=== PATIENT | male | born 1945 | race Hispanic/Latino ===

== ENCOUNTER 2016-09-09 15:49 | Emergency (ER) | payer MEDICARE ==
[2016-09-09 15:49] VITALS: BMI 38.5
[2016-09-09 16:20] VITALS: TEMP 98.3
[2016-09-09 16:35] LABS: ADD MANUAL DIFF? NO
--- NOTE | 2016-09-09 16:41 | ED PDOC ---
Arrival/HPI - General Chief Complaint: Fever Time Seen by Provider: 09/09/16 16:10 Historian: Patient - History of Present Illness Narrative History of Present Illness (Text): 09/09/16 16:31 71yo male with PMHx of CVA present with the daughter for few days history of fever, generalized weakness. The daughter states he slid off from his chair twice because he was weak. States he spoke with the PMD today and was referred to the ED. Pt denies any somatic complaint in ED. Denies chest pain, SOB, diaphoresis, nausea, vomiting, abdominal pain, sick contact, any other complaint. Past Medical History - Provider Review Nursing Documentation Reviewed: Yes - Infectious Disease Hx of Infectious Diseases: None - Tetanus Immunization Tetanus Immunization: Unknown - Cardiac Hx Hypertension: Yes Hx Peripheral Edema: Yes (ble +2 pitting) - Pulmonary Hx Sleep Apnea: Yes - Neurological Hx Neurological Disorder: Yes Hx Parkinson's Disease: Yes - HEENT Hx HEENT Disorder: Yes - Renal Hx Renal Disorder: No Hx Dialysis: No Hx Kidney Stones: No Hx Neurogenic Bladder: No Hx Pyelonephritis: No Hx Renal Cancer: No Hx Renal Failure: No - Endocrine/Metabolic Hx Diabetes Mellitus Type 2: Yes - Hematological/Oncological Hx Blood Disorders: No Hx AIDS: No Hx Anemia: No Hx Cancer: No Hx Chemotherapy: No Hx Cirrhosis: No Hx Hepatitis A: No Hx Hepatitis B: No Hx Hepatitis C: No Hx Metastasis: No Hx Shingles: No Hx Sickle Cell Disease: No Hx Unexplained Bleeding: No - Integumentary Hx Dermatological Disorder: Yes - Musculoskeletal/Rheumatological Hx Musculoskeletal Disorders: No Hx Arthritis: Yes (L side rheumatoid) Hx Falls: Yes (witnessed fall , no LOC) Hx Fractures: Yes (L shoulder) - Gastrointestinal Other/Comment: hx of hiatal hernia - Genitourinary/Gynecological Hx Genitourinary Disorders: No Hx Hematuria: No Hx Incontinence: No Hx Prostate Problems: No Hx Sexually Transmitted Diseases: No Hx Urinary Tract Infection: No - Psychiatric Hx Psychophysiologic Disorder: No Hx Anxiety: Yes Hx Bipolar Disorder: No Hx Depression: Yes Hx Emotional Abuse: No Hx Hallucinations: No Hx Panic Disorder: No Hx Post Traumatic Stress Disorder: No Hx Psychosis: No Hx Physical Abuse: No Hx Schizophrenia: No Hx Sexual Abuse: No Hx Substance Use: No - Past Surgical History Past Surgical History: Non-Contributing - Surgical History Hx Amputation: No Hx Appendectomy: No Hx Cardiac Catheterization: Yes Hx Cholecystectomy: No Hx Coronary Stent: No Hx Gastric Bypass Surgery: No Hx Joint Replacement: No Hx Kidney Transplant: No Hx Liver Transplant: No Hx Musculoskeletal Surgery: Yes Hx Open Heart Surgery: No Hx Orthopedic Surgery: Yes (left shoulder) Hx Splenectomy: No Hx Valve Replacement: No - Anesthesia Hx Anesthesia: Yes Hx Anesthesia Reactions: No Hx Malignant Hyperthermia: No - Suicidal Assessment Feels Threatened In Home Enviroment: No Family/Social History - Physician Review Nursing Documentation Reviewed: Yes Family/Social History: Unknown Family HX Smoking Status: Former Smoker Hx Alcohol Use: No Hx Substance Use: No Hx Substance Use Treatment: No Allergies/Home Meds Allergies/Adverse Reactions: Allergies No Known Allergies Allergy (Verified 09/09/16 16:08) Home Medications: Home Meds Medication Instructions Recorded Confirmed Pramipexole Di-HCl [Mirapex ER] 3 mg PO DAILY 07/17/12 09/09/16 Atorvastatin Calcium [Lipitor] 10 mg PO DAILY 08/03/12 09/09/16 Warfarin [Coumadin] 2.5 mg PO MOTUTHFRSA 11/24/13 09/09/16 Albuterol HFA [Ventolin HFA 90 2 puff IH [id number] PRN 08/14/15 09/09/16 mcg/actuation (8 g)] Carbidopa/Levodopa [Sinemet 10-100 1 each PO DAILY 08/14/15 09/09/16 mg Tablet] Folic Acid 1 mg PO DAILY 08/14/15 09/09/16 Furosemide [Lasix] 40 mg PO DAILY 08/14/15 09/09/16 Lisinopril [Zestril] 10 mg PO DAILY 08/14/15 09/09/16 Metolazone 2.5 mg PO DAILY PRN 08/14/15 09/09/16 metFORMIN [glucOPHAGE] 500 mg PO DAILY 08/14/15 09/09/16 Review of Systems - Physician Review All systems were reviewed & negative as marked: Yes - Review of Systems Constitutional: Fatigue, Fevers Eyes: Normal ENT: Normal Respiratory: Normal Cardiovascular: Normal Gastrointestinal: Normal Genitourinary Male: Normal Musculoskeletal: Normal Skin: Normal Neurological: Normal Endocrine: Normal Hemo/Lymphatic: Normal Psychiatric: Normal Physical Exam Vital Signs Reviewed: Yes Vital Signs Temp Pulse Resp BP Pulse Ox 09/09/16 18:15 65 18 137/72 98 09/09/16 16:02 98.3 F 61 20 114/66 94 L Temperature: Afebrile Blood Pressure: Normal Pulse: Regular Respiratory Rate: Normal Appearance: Positive for: Well-Appearing, Non-Toxic, Comfortable Pain Distress: None Mental Status: Positive for: Alert and Oriented X 3 - Systems Exam Head: Present: Atraumatic, Normocephalic Pupils: Present: PERRL Extroacular Muscles: Present: EOMI Conjunctiva: Present: Normal Mouth: Present: Moist Mucous Membranes Neck: Present: Normal Range of Motion Respiratory/Chest: Present: Clear to Auscultation, Good Air Exchange. No: Respiratory Distress, Accessory Muscle Use Cardiovascular: Present: Regular Rate and Rhythm, Normal S1, S2. No: Murmurs Abdomen: Present: Normal Bowel Sounds. No: Tenderness, Distention, Peritoneal Signs Back: Present: Normal Inspection Upper Extremity: Present: Normal Inspection. No: Cyanosis, Edema Lower Extremity: Present: Normal Inspection. No: Edema Neurological: Present: GCS=15, CN II-XII Intact, Speech Normal Skin: Present: Warm, Dry, Normal Color. No: Rashes Psychiatric: Present: Alert, Oriented x 3, Normal Insight, Normal Concentration Medical Decision Making ED Course and Treatment: 09/09/16 23:47 PT was seen in ED for stated history. He as afebrile, AAO x3 and hemodynamically stable in ED. His lab was unremarkable. He was ambulatory with a walker in ED. Chest xray - NAD Case was DW Dr. Bains, he requested that patient be DC home to f/u with him on Sunday. Result and plan was DW both patient and her daughter. They both agreed. - Lab Interpretations Lab Results: 09/09/16 16:15 09/09/16 16:15 Lab Results 09/09/16 18:45: Urine Color Yellow, Urine Appearance Clear, Urine pH 6.0, Ur Specific [place] 1.020, Urine Protein Trace H, Urine Glucose (UA) Negative, Urine Ketones Negative, Urine Blood Negative, Urine Nitrate Negative, Urine Bilirubin Negative, Urine Urobilinogen 2.0 H, Ur Leukocyte Esterase Negative, Urine RBC Negative, Urine WBC Negative 09/09/16 16:15: Sodium 142, Chloride 99, Potassium 3.6, Carbon Dioxide 32, Anion Gap 15, BUN 31 H, Creatinine 0.9, Est GFR ( Amer) > 60, Est GFR ( Non-Af Amer) > 60, Random Glucose 116 H, Calcium 9.0, Phosphorus 3.5, Magnesium 2.2, Total Bilirubin 0.9, AST 47, ALT 32, Alkaline Phosphatase 84, Troponin I 0.04 D, Total Protein 8.4 H, Albumin 4.1, Globulin 4.3, Albumin/Globulin Ratio 1.0 L 09/09/16 16:15: pO2 39, VBG pH 7.36, VBG pCO2 62.0 H, VBG HCO3 35.0 H, VBG Total CO2 36.9 H, VBG O2 Sat (Calc) 76.0 H, VBG Base Excess 7.4 H, VBG Potassium 3.6, Sodium 141.0, Chloride 105.0, Glucose 123 H, Lactate 1.5, FiO2 21.0, Venous Blood Potassium 3.6 09/09/16 16:15: PT 20.7 H, INR 1.92 H, APTT 38.3 H 09/09/16 16:15: WBC 5.3, RBC 4.24, Hgb 11.0 L, Hct 35.3 L, MCV 83.3, MCH 25.9, MCHC 31.2, RDW 17.2 H, Plt Count 119 L, Gran % 67.8, Lymph % (Auto) 19.4 L, [place] % (Auto) 9.7 H, Eos % (Auto) 2.7, Baso % (Auto) 0.4, Gran # 3.57, Lymph # 1.0 L, [place] # 0.5, Eos # 0.1, Baso # 0.02 - RAD Interpretation Radiology Orders: 09/09/16 16:10 CHEST PORTABLE [RAD] Stat Disposition/Present on Arrival - Present on Arrival Any Indicators Present on Arrival: No History of DVT/PE: No History of Uncontrolled Diabetes: No Urinary Catheter: No History of Decub. Ulcer: No History Surgical Site Infection Following: Orthopedic Procedures - Disposition Have Diagnosis and Disposition been Completed?: Yes Diagnosis: Malaise Disposition: HOME/ ROUTINE Disposition Time: 19:55 Patient Plan: Discharge Condition: STABLE Discharge Instructions (ExitCare): Fatigue (ED) Additional Instructions: Follow up with your doctor on Sunday Return to ED for any new or worsening symptoms Referrals: Junior Brock MD [Family Provider] - Follow up with primary
[2016-09-09 16:42] LABS: VENOUS BLOOD GAS BASE EXCESS 7.4 mmol/L (0.0-2.0); VENOUS BLOOD PH 7.36 (7.32-7.43)
[2016-09-09 16:49] LABS: BASO # 0.02 K/mm3 (0.0-2.0); BASO % 0.4 % (0.0-3.0); EOS # 0.1 (0.0-0.7); EOS % 2.7 % (1.5-5.0); GRAN # 3.57 (1.4-6.5); GRAN % 67.8 % (50.0-68.0); HEMATOCRIT 35.3 % (42.0-52.0); LYMPH % 19.4 % (22.0-35.0); MEAN CELL VOLUME 83.3 fL (80.0-105.0); MEAN CORPUSCULAR HEMOGLOBIN 25.9 pg (25.0-35.0); MEAN CORPUSCULAR HGB CONC 31.2 g/dl (31.0-37.0); MONO # 0.5 (0.1-0.6); MONO % 9.7 % (1.0-6.0); PLATELET COUNT 119 10^3/uL (120.0-450.0); RED CELL DISTRIBUTION WIDTH 17.2 % (11.5-14.5); WHITE BLOOD COUNT 5.3 10^3/ul (4.5-11.0)
[2016-09-09 16:53] LABS: ALKALINE PHOSPHATASE 84 U/L (38-133); ALT/SGPT 32 U/L (7-56); AST/SGOT 47 U/L (15-59); BILIRUBIN,TOTAL 0.9 mg/dL (0.2-1.3); BLOOD UREA NITROGEN 31 mg/dL (7-21); CARBON DIOXIDE 32 mmol/L (21-33); CHLORIDE 99 mmol/L (98-107); GFR AFRICAN-AMERICAN > 60; GLUCOSE,RANDOM 116 mg/dL (70-110); MAGNESIUM 2.2 mg/dL (1.7-2.2); PHOSPHOROUS 3.5 mg/dL (2.5-4.5); POTASSIUM 3.6 mmol/L (3.6-5.0); SODIUM 142 mmol/L (132-148); TOTAL PROTEIN 8.4 g/dL (5.8-8.3)
[2016-09-09 16:59] LABS: INR 1.92 (0.93-1.08); PARTIAL THROMBOPLASTIN TIME 38.3 Seconds (23.7-30.8)
[2016-09-09 17:04] LABS: TROPONIN I 0.04 ng/mL
[2016-09-09 19:05] VITALS: BP 137/72; PULSE 65; RESP 18; O2SAT 98
[2016-09-09 19:09] LABS: URINE BILIRUBIN NEGATIVE (NEGATIVE); URINE BLOOD NEGATIVE (NEGATIVE); URINE GLUCOSE (UA) NEGATIVE (NEGATIVE); URINE KETONE NEGATIVE (NEGATIVE); URINE LEUKOCYTE ESTERASE NEGATIVE Leu/uL (NEGATIVE); URINE PROTEIN TRACE mg/dL (<30 mg/dL)
[2016-09-09 19:10] LABS: URINE APPEARANCE CLEAR (CLEAR); URINE COLOR YELLOW (YELLOW)
[2016-09-09 19:16] LABS: URINE RBC NEGATIVE /hpf (0-2); URINE WBC NEGATIVE /hpf (0-6)
--- NOTE | 2016-09-10 06:58 | RAD ---
HISTORY: Sepsis Patient COMPARISON: No prior. FINDINGS: LUNGS: No active pulmonary disease. PLEURA: No significant pleural effusion identified, no pneumothorax apparent. CARDIOVASCULAR: Normal. OSSEOUS STRUCTURES: No significant abnormalities. VISUALIZED UPPER ABDOMEN: Normal. OTHER FINDINGS: None. IMPRESSION: No active disease.
--- NOTE | 2016-09-10 14:58 | CARD ---
APPROVED REPORT EKG Measurement Heart [id number] <Conclusion> Electronic ventricular pacemaker
== END 2016-09-09 20:31 | disposition home or self-care (01) ==
LOC: ED 15:49
DX: R53.81 Other malaise (principal); I10 Essential (primary) hypertension; R60.9 Edema, unspecified; G20 Parkinson's disease; E11.9 Type 2 diabetes mellitus without complications; Z87.891 Personal history of nicotine dependence

== ENCOUNTER 2017-11-26 15:47 | Inpatient (IN) | payer MEDICARE ==
[2017-11-26] MEDS ORDERED: cefTRIAXone 1 gm 1 GM/100 ML BAG IVPB STA (16:35)
--- NOTE | 2017-11-26 16:41 | ED PDOC ---
Arrival/HPI - General Chief Complaint: Trauma Time Seen by Provider: 11/26/17 16:13 Historian: Family (daughter) - History of Present Illness Narrative History of Present Illness (Text): 11/26/17 16:39 This 72 year old male with a past medical history that includes atrial fibrillation, Parkinson's, diabetes, hypertension, pacemaker, COPD, and CVA presents to the emergency department with daughter for evaluation of left flank pain, and back pain x 3 days. Daughter stated patient has been fallen multiple time last 3 days, and patient appears more disoriented. Daughter stated patient was seen by Dr. Brock, and daughter recommended to bring patient to ED for admission. Time/Duration: Other (see hpi) Context: Home Past Medical History - Provider Review Nursing Documentation Reviewed: Yes - Infectious Disease Hx of Infectious Diseases: None - Tetanus Immunization Tetanus Immunization: Unknown - Cardiac Hx Hypertension: Yes Hx Peripheral Edema: Yes (ble +2 pitting) - Pulmonary Hx Sleep Apnea: Yes - Neurological Hx Neurological Disorder: Yes Hx Parkinson's Disease: Yes - HEENT Hx HEENT Disorder: Yes - Renal Hx Renal Disorder: No Hx Dialysis: No Hx Kidney Stones: No Hx Neurogenic Bladder: No Hx Pyelonephritis: No Hx Renal Cancer: No Hx Renal Failure: No - Endocrine/Metabolic Hx Diabetes Mellitus Type 2: Yes - Hematological/Oncological Hx Blood Disorders: No Hx AIDS: No Hx Anemia: No Hx Cancer: No Hx Chemotherapy: No Hx Cirrhosis: No Hx Hepatitis A: No Hx Hepatitis B: No Hx Hepatitis C: No Hx Metastasis: No Hx Shingles: No Hx Sickle Cell Disease: No Hx Unexplained Bleeding: No - Integumentary Hx Dermatological Disorder: Yes - Musculoskeletal/Rheumatological Hx Musculoskeletal Disorders: No Hx Arthritis: Yes (L side rheumatoid) Hx Falls: Yes (witnessed fall , no LOC) Hx Fractures: Yes (L shoulder) - Gastrointestinal Other/Comment: hx of hiatal hernia - Genitourinary/Gynecological Hx Genitourinary Disorders: No Hx Hematuria: No Hx Incontinence: No Hx Prostate Problems: No Hx Sexually Transmitted Diseases: No Hx Urinary Tract Infection: No - Psychiatric Hx Psychophysiologic Disorder: No Hx Anxiety: Yes Hx Bipolar Disorder: No Hx Depression: Yes Hx Emotional Abuse: No Hx Hallucinations: No Hx Panic Disorder: No Hx Post Traumatic Stress Disorder: No Hx Psychosis: No Hx Physical Abuse: No Hx Schizophrenia: No Hx Sexual Abuse: No Hx Substance Use: No - Past Surgical History Past Surgical History: Non-Contributing - Surgical History Hx Amputation: No Hx Appendectomy: No Hx Cardiac Catheterization: Yes Hx Cholecystectomy: No Hx Coronary Stent: No Hx Gastric Bypass Surgery: No Hx Joint Replacement: No Hx Kidney Transplant: No Hx Liver Transplant: No Hx Musculoskeletal Surgery: Yes Hx Open Heart Surgery: No Hx Orthopedic Surgery: Yes (left shoulder) Hx Splenectomy: No Hx Valve Replacement: No - Anesthesia Hx Anesthesia: Yes Hx Anesthesia Reactions: No Hx Malignant Hyperthermia: No - Suicidal Assessment Feels Threatened In Home Enviroment: No Family/Social History - Physician Review Nursing Documentation Reviewed: Yes Family/Social History: Other (noncontributory) Smoking Status: Former Smoker Hx Alcohol Use: No Hx Substance Use: No Hx Substance Use Treatment: No Allergies/Home Meds Allergies/Adverse Reactions: Allergies No Known Allergies Allergy (Verified 09/09/16 16:08) Home Medications: Home Meds Medication Instructions Recorded Confirmed Pramipexole Di-HCl [Mirapex ER] 3 mg PO DAILY 07/17/12 09/09/16 Atorvastatin Calcium [Lipitor] 10 mg PO DAILY 08/03/12 09/09/16 Warfarin [Coumadin] 2.5 mg PO MOTUTHFRSA 11/24/13 09/09/16 Albuterol HFA [Ventolin HFA 90 2 puff IH [id number] PRN 08/14/15 09/09/16 mcg/actuation (8 g)] Carbidopa/Levodopa [Sinemet 10-100 1 each PO DAILY 08/14/15 09/09/16 mg Tablet] Folic Acid 1 mg PO DAILY 08/14/15 09/09/16 Furosemide [Lasix] 40 mg PO DAILY 08/14/15 09/09/16 Lisinopril [Zestril] 10 mg PO DAILY 08/14/15 09/09/16 Metolazone 2.5 mg PO DAILY PRN 08/14/15 09/09/16 metFORMIN [glucOPHAGE] 500 mg PO DAILY 08/14/15 09/09/16 Review of Systems - Review of Systems Systems not reviewed;Unavailable: Other (information given by patient's daughter ) Constitutional: Normal. absent: Fevers Eyes: Normal ENT: Normal Respiratory: Cough. absent: Sputum, Wheezing Cardiovascular: Normal. absent: Chest Pain, Palpitations Gastrointestinal: Abdominal Pain. absent: Nausea, Vomiting Genitourinary Male: Normal. absent: Dysuria, Frequency, Hematuria Musculoskeletal: Back Pain Skin: Normal. absent: Rash Neurological: Other (multiple fall). absent: Headache, Dizziness, Focal Weakness, Gait Changes, Speech Changes, Facial Droop, Disequilibrium, Seizure Endocrine: Normal Hemo/Lymphatic: Normal Psychiatric: Normal Physical Exam Vital Signs Temp Pulse Resp BP Pulse Ox 11/26/17 16:26 99.6 F 60 18 128/77 94 L Temperature: Afebrile Blood Pressure: Normal Pulse: Regular Respiratory Rate: Normal Appearance: Positive for: Well-Appearing, Non-Toxic, Comfortable Pain Distress: None - Systems Exam Head: Present: Atraumatic, Normocephalic Pupils: Present: PERRL Extroacular Muscles: Present: EOMI Conjunctiva: Present: Normal Mouth: Present: Moist Mucous Membranes Neck: Present: Normal Range of Motion Respiratory/Chest: Present: Clear to Auscultation, Good Air Exchange. No: Respiratory Distress, Accessory Muscle Use Cardiovascular: Present: Regular Rate and Rhythm, Normal S1, S2. No: Murmurs Abdomen: Present: Normal Bowel Sounds. No: Tenderness, Distention, Peritoneal Signs, Rebound, Guarding Back: Present: Normal Inspection Upper Extremity: Present: NORMAL PULSES, Neurovascularly Intact, Capillary Refill < 2s, Other ((+) left shoulder chronic tenderness. No cellulitis). No: Cyanosis, Edema, Erythema, Temperature Abnormalties Lower Extremity: Present: Edema ((+) mild pedal edema b/l lower leg), NORMAL PULSES. No: CALF TENDERNESS, Temperature Abnormalties Neurological: Present: GCS=15, CN II-XII Intact, Speech Normal Skin: Present: Warm, Dry, Normal Color. No: Rashes Psychiatric: Present: Alert, Normal Insight, Normal Concentration Medical Decision Making ED Course and Treatment: 11/26/17 19:[address] Brock, ED regarding patient with multiple fall, cough. I reveiwed CT scan result, lab result. He agreed with admission. Patient's daughter who has power of library science instructor agreed with admission. Re-evaluation Time: 19:25 Reassessment Condition: Re-examined, Improving,but remains with symptoms - Lab Interpretations Lab Results: 11/26/17 17:30 11/26/17 17:30 Lab Results 11/26/17 18:54: Urine Color Yellow, Urine Appearance Clear, Urine pH 6.0, Ur Specific [employer] 1.020, Urine Protein 30 H, Urine Glucose (UA) Negative, Urine Ketones Negative, Urine Blood Negative, Urine Nitrate Negative, Urine Bilirubin Negative, Urine Urobilinogen 4.0 H, Ur Leukocyte Esterase Negative, Urine RBC 0 - 2, Urine WBC 0 - 2, Ur Epithelial Cells 0 - 2, Urine Bacteria Trace 11/26/17 17:30: Sodium 144, Chloride 100, Potassium 3.8, Carbon Dioxide 32, Anion Gap 16, BUN 39 H, Creatinine 0.9, Est GFR ( Amer) > 60, Est GFR ( Non-Af Amer) > 60, Random Glucose 107, Calcium 8.9, Phosphorus 4.0, Magnesium 2.4 H, Total Bilirubin 1.1, AST 31, ALT 20, Alkaline Phosphatase 72, Lactate Dehydrogenase 659, Total Creatine Kinase 142, Troponin I 0.04, NT-Pro-B Natriuret Pep 3460 H, Total Protein 8.1, Albumin 4.4, Globulin 3.6, Albumin/ Globulin Ratio 1.2 11/26/17 17:30: PT 30.3 H, INR 2.61 H, APTT 40.4 H 11/26/17 17:30: WBC 7.2 D, RBC 3.88, Hgb 9.6 L, Hct 31.7 L, MCV 81.7, MCH 24.7 L, MCHC 30.3 L, RDW 17.6 H, Plt Count 165, MPV 10.9, Gran % 68.6 H, Lymph % ( Auto) 16.4 L, [place] % (Auto) 10.4 H, Eos % (Auto) 4.2, Baso % (Auto) 0.4, Gran # 4.95, Lymph # (Auto) 1.2, [place] # (Auto) 0.8 H, Eos # (Auto) 0.3, Baso # (Auto) 0.03, ESR 55 H 11/26/17 17:15: pCO2 43, pO2 105.0 H, HCO3 32.0 H, ABG pH 7.48 H, ABG Total CO2 33.3 H, ABG O2 Saturation 99.4 H, ABG Base Excess 7.6 H, ABG Potassium 3.5 L, Sodium 141.0, Chloride 108.0 H, Glucose 103, Lactate 1.0, FiO2 28.0, Arterial Blood Potassium 3.5 L I have reviewed the lab results: Yes Interpretation: Abnormal lab values - RAD Interpretation Narrative RAD Interpretations (Text): 11/26/17 17:37 FINDINGS: LUNGS: No active pulmonary disease. PLEURA: No significant pleural effusion identified, no pneumothorax apparent. CARDIOVASCULAR: Cardiomegaly. No evidence of acute, significant cardiovascular disease. Position/ configuration of pacemaker\AICD device: Satisfactory. OSSEOUS STRUCTURES: No significant abnormalities. VISUALIZED UPPER ABDOMEN: Normal. OTHER FINDINGS: None. IMPRESSION: No active disease. No significant interval change compared to the prior examination(s). 11/26/17 18:49 FINDINGS: HEMORRHAGE: No intracranial hemorrhage. BRAIN: No mass effect or edema. Cortical atrophy, periventricular small vessel disease. Stable area of cortical infarction right parietal lobe. VENTRICLES: Unremarkable. No hydrocephalus. CALVARIUM: Unremarkable. PARANASAL SINUSES: Unremarkable as visualized. No significant inflammatory changes. MASTOID AIR CELLS: Unremarkable as visualized. No inflammatory changes. OTHER FINDINGS: None. IMPRESSION: No acute intracranial abnormalities. No significant findings to account for the clinical presentation. No significant interval change compared to the prior examination(s). 11/26/17 19:08 PROCEDURE: CT Chest, Abdomen and Pelvis with intravenous contrast FINDINGS: LUNGS: Respiratory motion slightly limits evaluation. No nodule, mass or consolidation. MEDIASTINUM: Unremarkable. Normal caliber aorta and pulmonary arterial trunk. No aortic dissection. Cardiomegaly. Coronary arterial and valvular calcifications. Left subclavian access single lead pacemaker. LYMPH NODES: Unremarkable. PLEURA: Trace bilateral pleural effusions. No pneumothorax. LIVER: Unremarkable. No gross lesion or ductal dilatation. GALLBLADDER AND BILE DUCTS: Questionable gallbladder wall thickening. PANCREAS: Unremarkable. No gross lesion or ductal dilatation. SPLEEN: Unremarkable. ADRENALS: Unremarkable. No mass. KIDNEYS AND URETERS: Stable right interpolar cyst. Left extrarenal pelvis. No hydronephrosis. No solid mass. VASCULATURE: Unremarkable. No aortic aneurysm. BOWEL: Colonic diverticulosis. No obstruction. No gross mural thickening. APPENDIX: Normal appendix. PERITONEUM: Small fat containing right inguinal hernia. No free fluid. No free air. LYMPH NODES: Prominent left inguinal lymph nodes. BLADDER: Unremarkable. REPRODUCTIVE: Unremarkable. BONES: No acute fracture. Patchy lucent lesion in the L3 superior endplate which may represent a Schmorl node versus lytic metastasis. Grade 1 anterolisthesis of L5 on S1 OTHER FINDINGS: Left psoas muscle atrophy. Deformity of the left anterolateral abdominal wall with abnormal appearance the oblique abdominal muscles. IMPRESSION: Interval deformity of the left anterolateral abdominal wall with abnormal appearance of the oblique abdominal muscles and atrophy of the left psoas muscle. Findings are nonspecific. Additional nonacute findings as above. Radiology Orders: 11/26/17 16:35 CHEST PORTABLE [RAD] Stat 11/26/17 17:19 CHEST,ABD,PEL W/IV CONT ONLY [CT] Stat 11/26/17 18:05 HEAD W/O CONTRAST [CT] Stat - EKG Interpretation Interpreted by ED Physician: Yes (electronic ventricular pacemaker @60 bpm.) Type: 12 lead EKG Comparison: Similar to previous EKG - Medication Orders Current Medication Orders: Discontinued Medications Furosemide (Lasix) 40 mg IVP STAT STA Stop: 11/26/17 18:51 Ceftriaxone Sodium (Rocephin 1 Gram Ivpb) 1 gm in 100 mls @ 200 mls/hr IVPB STAT STA PRN Reason: Protocol Stop: 11/26/17 17:04 Last Admin: 11/26/17 17:00 Dose: 200 mls/hr eMAR Start Stop Document 11/26/17 17:00 MS (Rec: 11/26/17 18:49 MS [id number]) Intravenous Solution Start Date 11/26/17 Start Time 17:00 End Date 11/26/17 End time 17:30 Total Infusion Time 30 Disposition/Present on Arrival - Present on Arrival Any Indicators Present on Arrival: No History of DVT/PE: No History of Uncontrolled Diabetes: No Urinary Catheter: No History of Decub. Ulcer: No History Surgical Site Infection Following: Orthopedic Procedures - Disposition Have Diagnosis and Disposition been Completed?: Yes Diagnosis: CHF (congestive heart failure) Disposition: HOSPITALIZED Disposition Time: 19:33 Patient Problems: Current Active Problems Problem Status Onset CHF (congestive heart failure) Acute Condition: IMPROVED
[2017-11-26 17:20] LABS: ARTERIAL BLOOD GAS O2 SAT 99.4 % (95-98); ARTERIAL BLOOD GAS PCO2 43 mm/Hg (35-45); ARTERIAL BLOOD GAS PH 7.48 (7.35-7.45); ARTERIAL BLOOD GAS TCO2 33.3 mmol.L (22-28)
--- NOTE | 2017-11-26 17:34 | RAD ---
Date of service: 11/26/2017 HISTORY: Sepsis Patient COMPARISON: 09/09/2016 FINDINGS: LUNGS: No active pulmonary disease. PLEURA: No significant pleural effusion identified, no pneumothorax apparent. CARDIOVASCULAR: Cardiomegaly. No evidence of acute, significant cardiovascular disease. Position/ configuration of pacemaker Satisfactory. OSSEOUS STRUCTURES: No significant abnormalities. VISUALIZED UPPER ABDOMEN: Normal. OTHER FINDINGS: None. IMPRESSION: No active disease. No significant interval change compared to the prior examination(s).
[2017-11-26 17:47] LABS: BASO # 0.03 K/mm3 (0.0-2.0); BASO % 0.4 % (0.0-3.0); EOS # 0.3 (0.0-0.7); EOS % 4.2 % (1.5-5.0); GRAN # 4.95 (1.4-6.5); GRAN % 68.6 % (50.0-68.0); HEMOGLOBIN 9.6 g/dL (14.0-18.0); LYMPH # 1.2 (1.2-3.4); LYMPH % 16.4 % (22.0-35.0); MEAN CELL VOLUME 81.7 fl (80.0-105.0); MEAN CORPUSCULAR HEMOGLOBIN 24.7 pg (25.0-35.0); MEAN CORPUSCULAR HGB CONC 30.3 g/dl (31.0-37.0); MEAN PLATELET VOLUME 10.9 fl (7.0-11.0); MONO # 0.8 (0.1-0.6); MONO % 10.4 % (1.0-6.0); RBC 3.88 10^6/uL (3.5-6.1); RED CELL DISTRIBUTION WIDTH 17.6 % (11.5-14.5); WHITE BLOOD COUNT 7.2 10^3/ul (4.5-11.0)
[2017-11-26 17:52] LABS: ALB/GLOB RATIO 1.2 (1.1-1.8); ALBUMIN 4.4 g/dL (3.0-4.8); ALT/SGPT 20 U/L (7-56); AST/SGOT 31 U/L (17-59); BLOOD UREA NITROGEN 39 mg/dL (7-21); CALCIUM 8.9 mg/dL (8.4-10.5); GFR AFRICAN-AMERICAN > 60; GFR NON-AFRICAN AMERICAN > 60
[2017-11-26 17:55] LABS: INR 2.61 (0.93-1.08); PARTIAL THROMBOPLASTIN TIME 40.4 Seconds (25.1-36.5); PROTHROMBIN TIME 30.3 SECONDS (9.4-12.5)
[2017-11-26] MEDS ORDERED: Iohexol 350 MG/100 ML VIAL ONE (17:56)
[2017-11-26 18:03] LABS: B-TYPE NATRIURETIC PEPTIDE 3460 pg/mL (0-450); TROPONIN I 0.04 ng/mL
--- NOTE | 2017-11-26 18:45 | CT ---
Date of service: 11/26/2017 PROCEDURE: CT HEAD WITHOUT CONTRAST. HISTORY: posterior scalp pain s/p fall COMPARISON: 05/31/2016. TECHNIQUE: Axial computed tomography images were obtained through the head/brain without intravenous contrast. Coronal and sagittal reconstructed images. Radiation dose: Total exam DLP = 1299.86 mGy-cm. This CT exam was performed using one or more of the following dose reduction techniques: Automated exposure control, adjustment of the mA and/or kV according to patient size, and/or use of iterative reconstruction technique. FINDINGS: HEMORRHAGE: No intracranial hemorrhage. BRAIN: No mass effect or edema. Cortical atrophy, periventricular small vessel disease. Stable area of cortical infarction right parietal lobe. VENTRICLES: Unremarkable. No hydrocephalus. CALVARIUM: Unremarkable. PARANASAL SINUSES: Unremarkable as visualized. No significant inflammatory changes. MASTOID AIR CELLS: Unremarkable as visualized. No inflammatory changes. OTHER FINDINGS: None. IMPRESSION: No acute intracranial abnormalities. No significant findings to account for the clinical presentation. No significant interval change compared to the prior examination(s).
--- NOTE | 2017-11-26 18:57 | CT ---
Date of service: 11/26/2017 PROCEDURE: CT Chest, Abdomen and Pelvis with intravenous contrast HISTORY: abdominal and back pain COMPARISON: CT scan of the abdomen and pelvis dated 05/31/2016 ; CT angiography of the chest, abdomen and pelvis dated 12/24/2014. TECHNIQUE: IV dose administered: 100 mL Omnipaque 350 Radiation dose: Total exam DLP = 1279.3 mGy-cm. This CT exam was performed using one or more of the following dose reduction techniques: Automated exposure control, adjustment of the mA and/or kV according to patient size, and/or use of iterative reconstruction technique. FINDINGS: LUNGS: Respiratory motion slightly limits evaluation. No nodule, mass or consolidation. MEDIASTINUM: Unremarkable. Normal caliber aorta and pulmonary arterial trunk. No aortic dissection. Cardiomegaly. Coronary arterial and valvular calcifications. Left subclavian access single lead pacemaker. LYMPH NODES: Unremarkable. PLEURA: Trace bilateral pleural effusions. No pneumothorax. LIVER: Unremarkable. No gross lesion or ductal dilatation. GALLBLADDER AND BILE DUCTS: Questionable gallbladder wall thickening. PANCREAS: Unremarkable. No gross lesion or ductal dilatation. SPLEEN: Unremarkable. ADRENALS: Unremarkable. No mass. KIDNEYS AND URETERS: Stable right interpolar cyst. Left extrarenal pelvis. No hydronephrosis. No solid mass. VASCULATURE: Unremarkable. No aortic aneurysm. BOWEL: Colonic diverticulosis. No obstruction. No gross mural thickening. APPENDIX: Normal appendix. PERITONEUM: Small fat containing right inguinal hernia. No free fluid. No free air. LYMPH NODES: Prominent left inguinal lymph nodes. BLADDER: Unremarkable. REPRODUCTIVE: Unremarkable. BONES: No acute fracture. Patchy lucent lesion in the L3 superior endplate which may represent a Schmorl node versus lytic metastasis. Grade 1 anterolisthesis of L5 on S1 OTHER FINDINGS: Left psoas muscle atrophy. Deformity of the left anterolateral abdominal wall with abnormal appearance the oblique abdominal muscles. IMPRESSION: Interval deformity of the left anterolateral abdominal wall with abnormal appearance of the oblique abdominal muscles and atrophy of the left psoas muscle. Findings are nonspecific. Additional nonacute findings as above.
[2017-11-26 18:58] LABS: URINE BILIRUBIN NEGATIVE (NEGATIVE); URINE BLOOD NEGATIVE (NEGATIVE); URINE GLUCOSE (UA) NEGATIVE (NEGATIVE); URINE LEUKOCYTE ESTERASE NEGATIVE Leu/uL (NEGATIVE); URINE PROTEIN 30 mg/dL (<30 mg/dL)
[2017-11-26 19:02] LABS: URINE APPEARANCE CLEAR (CLEAR); URINE COLOR YELLOW (YELLOW)
[2017-11-26 19:19] LABS: URINE BACTERIA TRACE (NEG); URINE EPITHELIAL CELLS 0 - 2 /hpf (0-5); URINE RBC 0 - 2 /hpf (0-2); URINE WBC 0 - 2 /hpf (0-6)
[2017-11-26] MEDS ORDERED: Albuterol 0.083% Inhal Sol (2.5 mg/3 mL) UD IH PRN (22:19)
[2017-11-27 00:49] VITALS: BMI 32.3
[2017-11-27 06:41] LABS: BASO # 0.02 K/mm3 (0.0-2.0); BASO % 0.4 % (0.0-3.0); EOS # 0.3 (0.0-0.7); EOS % 6.3 % (1.5-5.0); GRAN # 3.24 (1.4-6.5); GRAN % 61.8 % (50.0-68.0); HEMOGLOBIN 9.4 g/dL (14.0-18.0); LYMPH # 1.1 (1.2-3.4); LYMPH % 20.2 % (22.0-35.0); MEAN CELL VOLUME 82.2 fl (80.0-105.0); MEAN CORPUSCULAR HEMOGLOBIN 24.7 pg (25.0-35.0); MEAN PLATELET VOLUME 10.6 fl (7.0-11.0); MONO # 0.6 (0.1-0.6); MONO % 11.3 % (1.0-6.0); RBC 3.81 10^6/uL (3.5-6.1); RED CELL DISTRIBUTION WIDTH 17.7 % (11.5-14.5); WHITE BLOOD COUNT 5.2 10^3/ul (4.5-11.0)
[2017-11-27 06:53] LABS: ALB/GLOB RATIO 1.2 (1.1-1.8); ALBUMIN 4.4 g/dL (3.0-4.8); ALT/SGPT 29 U/L (7-56); AST/SGOT 29 U/L (17-59); BLOOD UREA NITROGEN 33 mg/dL (7-21); CALCIUM 8.9 mg/dL (8.4-10.5); GFR AFRICAN-AMERICAN > 60; GFR NON-AFRICAN AMERICAN > 60
[2017-11-27] MEDS: Budesonide 0.5 mg/2 ml Inhal Susp UD IH SCH ×2 (07:51→19:35)
[2017-11-27] MEDS: Arformoterol 15 mcg/2 ml Inh Sol IH SCH ×2 (07:51→19:35)
[2017-11-27] MEDS: Insulin Reg-LOW-Coverage SC SCH ×4 (08:38→21:36)
[2017-11-27] MEDS ORDERED: metOLazone 5 MG TAB PO PRN (10:00)
[2017-11-27] MEDS: metOLazone 5 MG TAB PO SCH (10:31)
[2017-11-27] MEDS: Potassium Chloride 10 mEq ER Tab PO SCH (10:36)
--- NOTE | 2017-11-27 11:55 | HP ---
HISTORY OF PRESENT ILLNESS: The patient is a 72-year-old male who was seen in the emergency room 3 days ago after multiple falls at home, complaining of pain in the hips, back, ribs. Workup done including x-rays were apparently negative for fracture and the patient was discharged to home. Over the weekend, the patient had fallen again, this time hitting his head. The daughter was very concerned about the patient's overall condition. He was complaining of pain, weakness and he presented to the office for evaluation and I suggested hospitalization, so the patient went to the emergency room where he is again evaluated and admitted. PAST MEDICAL HISTORY: He has a past medical history positive for atrial fibrillation, Parkinsonism, diabetes mellitus, hypertension, status post permanent pacemaker implant, chronic obstructive pulmonary disease, status post cerebrovascular accidents with minimal residual weakness. ALLERGIES: THE PATIENT HAS NO KNOWN MEDICAL ALLERGIES. MEDICATIONS AT THE TIME OF ADMISSION: Included Mirapex 3 mg daily, Lipitor 10 mg daily, warfarin 2.5 mg daily x5 days a week, Ventolin HFA inhaler, Sinemet 10/100 tablets daily, folic acid 1 mg a day, Lasix 40 mg, lisinopril 10 mg, metolazone 2.5 mg and metformin 500 mg daily. SOCIAL HISTORY: The patient is a . He lives with and is cared for by his daughter and son-in-law and granddaughter. REVIEW OF SYSTEMS: There is weakness in the legs. The patient has difficulty sitting from a standing position and standing from a sitting position. There is exquisite pain over the right lower flank and posterior ribs. Review of systems is otherwise unremarkable. PHYSICAL EXAMINATION: VITAL SIGNS: On physical exam, his blood pressure is 128/77, heart rate is 60 beats per minute. HEENT: Examination of the head, eyes, ears, nose and throat is positive for an ectropion of the left eye. NECK: Supple with no lymphadenopathy. No goiter. LUNGS: Clear to auscultation and percussion. HEART: Regular. No murmurs are appreciated. ABDOMEN: Shows normal bowel sounds. However, it is diffusely tender on light palpation. There is no rebound tenderness. EXTREMITY: Shows +1 to +2 edema of the lower extremities. No cords are palpable. There is decreased range of motion of the shoulders secondary to pain. NEUROLOGIC: The patient is awake, alert and oriented. He does appear to be very, very uncomfortable. LABORATORY STUDIES: Show the white blood cell count to be 7.2, hemoglobin and hematocrit are 9.6 and 31.7 respectively. Sodium is 144, potassium 3.8, blood urea nitrogen is 39, creatinine 0.9. BNP is elevated at 3460. Sedimentation rate is elevated at 55. Liver enzymes are within normal limits. Troponin is 0.04. The urine is yellow and clear. There is some protein in the urine, but no blood or leukocyte esterase or white blood cells are noted. Chest x-ray shows no active disease. Cardiomegaly. CAT scan of the head shows no active disease. No recent bleeding or intracranial hemorrhage. CAT scan of the chest, abdomen and pelvis is essentially unremarkable except for an interval deformity of the left devang-lateral abdominal wall with appearance of the abdominal muscles and atrophy of the left psoas muscle. These findings are considered nonspecific. IMPRESSION: The patient is admitted with a diagnosis of weakness, congestive heart failure, history of chronic obstructive pulmonary disease. The patient will be reevaluated in the morning. Memo Brock MD
[2017-11-27] MEDS ORDERED: Potassium Chloride 20 mEq ER Tab PO ONE ×2 (12:00→17:00)
--- NOTE | 2017-11-27 13:47 | CON ---
DATE: 11/27/2017 PULMONARY CONSULTATION REASON FOR CONSULTATION: Chronic obstructive pulmonary disease. REFERRING PHYSICIAN: Junior Brock MD. History is obtained via extensive discussion with the night nurse. I have also reviewed the chart at length. HISTORY OF PRESENT ILLNESS: The patient is a chronically ill 72-year-old male, with past medical history significant for atrial fibrillation, Parkinson's disease, advanced chronic obstructive pulmonary disease, diabetes mellitus, hypertension, permanent pacemaker, cerebrovascular accident in the past, who presents to [facility] with main complaints of frequent falls and increasing left lower back pain for the past three days. The daughter also stated (in the Emergency Room) that the patient appeared to be more disoriented. The patient was thus admitted for additional evaluation and treatment. Again, I did discuss the case with the night nurse at length. The night nurse notes no shortness of breath or cough during her shift. I do know this patient for many years. Unfortunately, he is very noncompliant with my office followup. In the past, the patient did offer symptoms of occasional dyspnea on exertion and occasional cough. There is no history of significant sputum production. Again, the patient is not an adequate historian at this point in time. There is no history of chest pain,coughing up of blood or chest pain-made worse with deep respirations. There is no history of temperatures, chills or infectious exposure. There is no history of night sweats. It does appear that he has lost weight, with questionable appetite change. No history of calf pains. No history of syncope or diaphoresis. No history of recent travel. REVIEW OF SYSTEMS: No history of nausea, vomiting or diarrhea. No acute urinary symptoms. Rest of the review of systems is negative. ALLERGIES: NO KNOWN ALLERGIES. SOCIAL HISTORY: Positive for extensive tobacco usage. No alcohol. FAMILY HISTORY: No inheritable diseases. HOME MEDICATIONS: Include Glucophage, metolazone, albuterol HFA p.r.n., Zestril, Lasix, carbidopa, Lipitor, Coumadin, Mirapex. PHYSICAL EXAMINATION: GENERAL: The patient appears comfortable at rest. He is not short of breath. VITAL SIGNS: Temperature is 99, pulse 60, respirations 18, blood pressure 158/81. Oxygen saturation on nasal cannula is 99%. HEENT: Normocephalic, atraumatic. No JVD. CARDIOVASCULAR: Systolic ejection murmur at the lower left sternal border. No S3 gallop. LUNGS: Decreased breath sounds at the bases. Very minimal rhonchi. No wheezing. EXTREMITIES: Mild edema. No cyanosis, no clubbing. Calves are nontender to palpation. GI: Abdomen is soft, nontender and nondistended. Bowel sounds are positive. SKIN: No acute rash. NEUROLOGIC: Limited at the present time. PERTINENT LABORATORY DATA: CAT scan of the chest was done yesterday and reviewed. There is no nodule, mass or consolidation seen. There is no lymphadenopathy. Arterial blood gas was also done on nasal cannula. Results are: pH 7.48, pCO2 43, pO2 of 105. CBC: White count 5.2K, hemoglobin 9.4, hematocrit 31.3, platelets of 140,000. Complete metabolic profile: Potassium 3.3, carbon dioxide 35, BUN 33. Rest of the metabolic profile is within normal limits. B-type natriuretic peptide is 3460. Procalcitonin is negative. IMPRESSION: 1. Frequent falls. 2. Failure to thrive. 3. Advanced chronic obstructive pulmonary disease. 4. Increased B-type natriuretic peptide. 5. Anemia. PLAN: Again, I did discuss the case with the night nurse at length. I have also reviewed the chart at length. The patient presents to [facility] with main complaints of frequent falls and increasing left lower back pain for the past three days. It also appears that the patient has lost some weight since the last time I saw him. Again, he does have a significant history of noncompliance with office followup (with me). I did review the CAT scan of the chest-noted above. There are no acute abnormalities noted. I have also reviewed the arterial blood gas. The arterial blood gas is very acceptable at this point in time. On physical exam, there is only minimal bronchospasm noted. Again, there is no significant alveolar-arterial gradient. I will start the patient on Brovana and Pulmicort nebulizer treatments. He does have a history of advanced COPD. Cardiology evaluation with Dr. Hemphill has also been ordered. Clinical status of the patient does appear improved this morning. He is not complaining of any back pain. However, the patient's overall status appears to be declining. I will discuss the above with Dr. Brock this morning. Thank you very much for this pulmonary consultation. Kameron Lezama MD [facility] # [id number] [facility]
--- NOTE | 2017-11-27 16:28 | CARD ---
APPROVED REPORT Date of service: 11/26/2017 EKG Measurement Heart [id number] <Conclusion> Electronic ventricular pacemaker
--- NOTE | 2017-11-27 18:01 | CON ---
DATE: 11/27/2017 REASON FOR CONSULTATION AND FOLLOWUP: Cardiac evaluation, rule out congestive heart failure; history of atrial fibrillation; history of CAD, status post pacemaker. BRIEF CLINICAL HISTORY: A 72-year-old male with past medical history include atrial fibrillation, Parkinson disease, hypertension, pacemaker, COPD, CVA, history of non-obstructive coronary artery disease, admitted here with evaluation of the left flank pain and back pain. Patient states that he fell down 3 times when he was sitting on the chair, went to Dr. Brock's office who advised admission, came in here, complaining of mild shortness of breath. PAST MEDICAL HISTORY: Significant for COPD; pulmonary hypertension; CVA; chronic atrial fibrillation; hypertension, status post pacemaker; coronary artery disease. SOCIAL HISTORY: Denies any history of smoking, denies any history of alcohol abuse. PREVIOUS CARDIAC WORKUP: As follows: Patient has a cardiac catheterization on 09/17/2013, shows non-obstructive coronary artery disease, left main is essentially free of significant disease, LAD mild disease, circumflex large caliber, 30% stenosis, RCA nondominant, totally occluded. LV function preserved. Ejection fraction 55%-60%. No significant gradient across aortic valve noted. At that time, patient also has a right heart catheterization that showed RA 22, RV 90/26, PA pressure 80/32, mean PA 44. Pulmonary capillary wedge pressure 32, cardiac output 4.8 liter per minute, cardiac index 2.1 liter. Pulmonary vascular resistance 2.8 javed unit. Right heart consistent with severe pulmonary hypertension. Last echo with ejection fraction 55%, diastolic dysfunction, lfkn-xv-fajieprdvr dilated RV, qxaj-ut-qfyszggtve decreased LV function, long-hk-cakwcffk aortic stenosis by catheterization, no significant gradient across aortic valve noted. Ibfd-ht-nrtssxvj tricuspid regurgitation. Last echo dated 12/25/2014, that showed ejection fraction 50%, mild valvular aortic stenosis, right coronary cusp is heavily calcified, immobile. There is a trace aortic regurgitation, mild mitral regurgitation, cypv-xg-phpyrokl tricuspid regurgitation, RV systolic pressure 53. Last stress test in 2013 was essentially normal. REVIEW OF SYSTEMS: As per HPI. PHYSICAL EXAMINATION: As follows: VITAL SIGNS: Height of the patient is 4 feet 8 inches, weight of the patient 151 pounds, body mass index 32 kg/m2. Vital signs, temperature afebrile, heart rate 60, blood pressure 162/88. HEENT: PERRLA. Extraocular muscles intact. NECK: Supple. No carotid bruits or thyromegaly. CHEST: Clear to auscultation. HEART: S1 and S2 regular. ABDOMEN: Soft. EXTREMITIES: Clubbing and cyanosis negative. LABORATORY DATA: Blood workup as follows: WBC 5.3, hemoglobin 9.5, hematocrit 31.3, platelet count 140. Chemistry shows sodium 140, potassium , chloride 98, carbon dioxide 35, anion gap of 16, BUN 33, creatinine 0.9. TSH 1.82. BNP 3460. EKG shows V pacing with underlying atrial fibrillation. INR is 2.61. CURRENT MEDICATIONS: The patient at home is taking metolazone, lisinopril, folic acid, Coumadin. IMPRESSION: History of chronic atrial fibrillation; history of non-obstructive coronary artery disease, status post cardiac catheterization in 2013 that showed mild disease in left anterior descending, jtfn-ad-diaiuvoo disease in circumflex, right coronary artery is non-dominant, occluded, preserved left ventricular function. No gradient across the aortic valve by cath. Last echo shows mild aortic stenosis, admitted with flank pain, congestive heart failure, elevated BNP, history of chronic atrial fibrillation on Coumadin; history of permanent pacemaker, history of Parkinson disease. RECOMMENDATIONS: Resume medication. Lipid profile, TSH, hemoglobin A1c. We will continue anticoagulation, continue Lasix. We will give IV and hold p.o., get echo to assess LV function. Further recommendation depends on hospital course. We will follow with you. Thank you, Dr. Brock, for providing us the opportunity in taking care of the patient, Miquel Salazar. Parker Hemphill MD
--- NOTE | 2017-11-28 01:47 | PN ---
DATE: 11/27/2017 SUBJECTIVE: The patient was seen this Sunday evening, room 372, bed 1 with his daughter and granddaughter at the bedside. He is awake, alert, clear. Mental status is at baseline. His breathing is much more comfortable. His distended abdomen has come down quite a bit. PHYSICAL EXAMINATION: LUNGS: Show good aeration right and left. There is no wheezing at this time. ABDOMEN: Protuberant, not as tense as on presentation and in the past when he has been in for congestive heart failure. EXTREMITIES: Legs show some chronic edema. ASSESSMENT AND PLAN: Physical therapy, out of bed. We will make plans in the direction of TCU tomorrow. We will also start working on a hospital bed for home, and we will ask for consultation by Dr. Mota for Podiatry. The patient is in need of the hospital bed because of the severity of his arthritis. He cannot turn as he would normally be expected in regular bed. He needs to be repositioned to sacral and extremity breakdown. Also because of the severity of his congestive heart failure, he needs to be frequently positioned in a way such that a regular bed would not be able to accommodate. Therefore hospital bed is medically necessary. I will write the order and give the daughter prescription, and ask case management and community mental health social worker to assist. Junior Brock MD
[2017-11-28 06:53] LABS: BASO # 0.02 K/mm3 (0.0-2.0); BASO % 0.2 % (0.0-3.0); EOS # 0.4 (0.0-0.7); EOS % 4.9 % (1.5-5.0); GRAN # 5.9 (1.4-6.5); GRAN % 72.8 % (50.0-68.0); HEMOGLOBIN 10.2 g/dL (14.0-18.0); LYMPH # 1.2 (1.2-3.4); LYMPH % 14.3 % (22.0-35.0); MEAN CELL VOLUME 80.7 fl (80.0-105.0); MEAN CORPUSCULAR HEMOGLOBIN 24.6 pg (25.0-35.0); MEAN CORPUSCULAR HGB CONC 30.4 g/dl (31.0-37.0); MEAN PLATELET VOLUME 10.8 fl (7.0-11.0); MONO # 0.6 (0.1-0.6); MONO % 7.8 % (1.0-6.0); RBC 4.15 10^6/uL (3.5-6.1); RED CELL DISTRIBUTION WIDTH 17.5 % (11.5-14.5)
[2017-11-28 07:02] LABS: INR 2.69 (0.93-1.08); PROTHROMBIN TIME 31.6 SECONDS (9.4-12.5)
[2017-11-28 07:04] LABS: WHITE BLOOD COUNT 8.1 10^3/ul (4.5-11.0)
[2017-11-28 07:14] LABS: LDL CHOLESTEROL 39 mg/dL (0-129)
[2017-11-28 07:28] LABS: ALB/GLOB RATIO 1.1 (1.1-1.8); ALBUMIN 4.3 g/dL (3.0-4.8); ALT/SGPT 30 U/L (7-56); AST/SGOT 39 U/L (17-59); BLOOD UREA NITROGEN 36 mg/dL (7-21); GFR AFRICAN-AMERICAN > 60; GFR NON-AFRICAN AMERICAN 60; HDL CHOLESTEROL 35 mg/dL (29-60)
--- NOTE | 2017-11-28 07:32 | PN ---
DATE: 11/28/2017 PULMONARY NOTE SUBJECTIVE: The patient appears comfortable this morning. He is much more awake and alert. He is not short of breath at rest. PHYSICAL EXAMINATION: VITAL SIGNS: Temperature is 98, pulse 60, respirations 18, blood pressure 134/70. Oxygen saturation on nasal cannula is 98-100%. HEENT: Normocephalic, atraumatic. No JVD. CARDIOVASCULAR: Systolic ejection murmur at the lower left sternal border. No S3 gallop. LUNGS: Decreased breath sounds at the bases. Minimal/less rhonchi. No wheezing. EXTREMITIES: Mild edema. No cyanosis, no clubbing. Calves are nontender to palpation. GI: Abdomen is soft, nontender, nondistended. Bowel sounds are positive. SKIN: No acute rash. NEUROLOGIC: Exam limited at the present time. IMPRESSION: 1. Frequent falls. 2. Failure to thrive. 3. Advanced chronic obstructive pulmonary disease. 4. Increased B-type natriuretic peptide. 5. Anemia. PLAN: The patient appears comfortable this morning. He is not short of breath at rest. He is much more awake and alert this morning. On physical exam, there is no significant bronchospasm noted. In addition, there is no significant alveolar-arterial gradient. I will continue the current nebulizer treatments and inhaled steroids for now. Input by Cardiology (Dr. Hemphill) is also noted. The patient is currently on Lasix. He is also on Zaroxolyn. Clinical status of the patient is certainly improved - compared to yesterday. However, unfortunately, the overall status/prognosis for this patient appears poor. I will discuss the above with Dr. Brock. Kameron Lezama MD [facility]
[2017-11-28] MEDS: Budesonide 0.5 mg/2 ml Inhal Susp UD IH SCH ×2 (07:47→20:07)
[2017-11-28] MEDS: Arformoterol 15 mcg/2 ml Inh Sol IH SCH ×2 (07:47→20:07)
--- NOTE | 2017-11-28 08:10 | CP.PCM.PN ---
Subjective - Date & Time of Evaluation Date of Evaluation: 11/28/17 Time of Evaluation: 06:35 - Subjective Subjective: Awake, alert, comfortable, denies chest pain, denies shortness of breath Reason for consultation and follow up: Cardiac evaluation for shortness of breath, history of coronary artery disease, atrial fibrillation, PPM Seen and examined by me and Dr. Hemphill Objective - Vital Signs/Intake and Output Vital Signs (last 24 hours): Temp Pulse Resp BP Pulse Ox 98 F 60 18 134/70 98 11/27/17 16:40 11/28/17 06:00 11/27/17 16:40 11/27/17 18:18 11/27/17 16:40 Intake and Output: 11/28/17 11/28/17 06:59 18:59 Intake Total 780 Output Total 3575 Balance -2795 - Medications Medications: Current Medications Albuterol Sulfate (Albuterol 0.083% Inhal Amalia (2.5 Mg/3 Ml) Ud) 2.5 mg IH [id number] PRN PRN Reason: Wheezing Arformoterol Tartrate (Brovana) 15 mcg IH [id number] [facility] Last Admin: 11/28/17 07:47 Dose: 15 mcg Budesonide (Pulmicort Respules) 0.5 mg IH [id number] [facility] Last Admin: 11/28/17 07:47 Dose: 0.5 mg Carbidopa/Levodopa (Sinemet 10/100) 1 tab PO DAILY [facility] Last Admin: 11/27/17 10:31 Dose: 1 tab Folic Acid (Folic Acid) 1 mg PO DAILY PORFIRIO Last Admin: 11/27/17 10:31 Dose: 1 mg Furosemide (Lasix) 40 mg PO DAILY [facility] Furosemide (Lasix) 40 mg IV ONCE ONE Stop: 11/28/17 10:01 Insulin Human Regular (Humulin R Low) 0 units SC ACHS PORFIRIO PRN Reason: Protocol Last Admin: 11/27/17 21:36 Dose: Not Given Lisinopril (Zestril) 10 mg PO DAILY [facility] Last Admin: 11/27/17 10:31 Dose: 10 mg Metolazone (Zaroxolyn) 5 mg PO DAILY [facility] Last Admin: 11/27/17 10:31 Dose: 5 mg Potassium Chloride (Klor-Con 10) 10 meq PO BRK PORFIRIO Last Admin: 11/27/17 10:36 Dose: 10 meq Warfarin Sodium (Coumadin) 2.5 mg PO Sowmya@1800 PORFIRIO PRN Reason: Protocol Last Admin: 11/27/17 18:20 Dose: 2.5 mg - Labs Labs: 11/28/17 06:20 11/28/17 06:20 PT 31.6 SECONDS (9.4-12.5) H 11/28/17 06:20 INR 2.69 (0.93-1.08) H 11/28/17 06:20 APTT 40.4 Seconds (25.1-36.5) H 11/26/17 17:30 - Constitutional Appears: No Acute Distress - Eye Exam Eye Exam: Normal appearance - ENT Exam ENT Exam: Mucous Membranes Moist - Respiratory Exam Respiratory Exam: Decreased Breath Sounds, NORMAL BREATHING PATTERN - Cardiovascular Exam Cardiovascular Exam: +S1, +S2 Additional comments: PPM- telemetry-V pacing 60's - GI/Abdominal Exam GI & Abdominal Exam: Soft, Normal Bowel Sounds - Extremities Exam Additional comments: dry - Neurological Exam Neurological Exam: Alert, Awake, Oriented x3 - Psychiatric Exam Psychiatric exam: Normal Affect - Skin Skin Exam: Dry, Warm Assessment and Plan - Assessment and Plan (Free Text) Assessment: A 72 year old male who was sent to ER by PMD due to frequent falls and shortness of breath. History of atrial fibrillation, coronary artery disease, Parkinson's, diabetes, hypertension, pacemaker, COPD, and CVA, pulmonary hypertension. Plan: Echo done to evaluate LV function, will follow up result Heart rate and blood pressure controlled No respiratory distress Continue current treament Continue current medications On daily Lasix On Coumadin Will follow up Plan and treatment discussed with Dr. Hemphill
[2017-11-28] MEDS: Insulin Reg-LOW-Coverage SC SCH ×4 (08:27→21:31)
[2017-11-28] MEDS: metOLazone 5 MG TAB PO SCH (10:09)
[2017-11-28] MEDS: Potassium Chloride 10 mEq ER Tab PO SCH (10:11)
[2017-11-28] MEDS ORDERED: Levalbuterol 0.63 MG/3 ML Inhal Soln UD IH PRN (12:38)
--- NOTE | 2017-11-29 01:23 | PN ---
DATE: 11/28/2017 SUBJECTIVE: The patient is a 72-year-old male who was admitted to the emergency room yesterday after being evaluated in the office. He had fallen several times at home. He hit his head. He was complaining of exquisite tenderness over the left lower ribs and flank and the patient was simply too weak to stand, could barely walk, therefore, the patient was sent to the emergency room where he was evaluated and admitted. PAST MEDICAL HISTORY: He is known to have a past medical history positive for atrial fibrillation, Parkinsonism, diabetes mellitus, hypertension, status post permanent pacemaker implant, chronic obstructive pulmonary disease, status post cerebrovascular accident with minimal but some left-sided weakness. His evaluation in the emergency room was negative for rib fractures. CAT scan of the head was negative. The patient did have a marked elevation in his BNP. He was admitted with a diagnosis of congestive heart failure and exacerbation of COPD. PHYSICAL EXAMINATION: GENERAL: When seen today, he is sitting up in a chair. He is awake, alert and oriented. LUNGS: His lungs are clear to auscultation and percussion. HEART: Regular. ABDOMEN: Round, soft, nontender. EXTREMITIES: Show +1 pretibial edema. VITAL SIGNS: His vital signs are stable. LABORATORY DATA: To date, blood cultures and urine cultures are negative. His PT/INR is 2.69, hemoglobin is 10.2, hematocrit is 33.5. Blood urea nitrogen is 36, creatinine is 1.2. The patient says he was evaluated by Physical Therapy earlier. He was asked to walk with a walker, however, he found that his left leg and left upper extremity were weak. He could barely support himself on the left side even with the walker. We will continue to follow the patient and encourage physical therapy to build up strength from his left hemiparesis, status post cerebrovascular accident. We are also continuing to diurese the patient from his congestive heart failure. He is being followed by Cardiology and Pulmonology for his chronic obstructive pulmonary disease exacerbation as well. Memo Brock MD
[2017-11-29] MEDS: Budesonide 0.5 mg/2 ml Inhal Susp UD IH SCH ×2 (07:27→20:09)
[2017-11-29] MEDS: Arformoterol 15 mcg/2 ml Inh Sol IH SCH ×2 (07:27→20:09)
[2017-11-29] MEDS: Insulin Reg-LOW-Coverage SC SCH ×3 (07:30→17:37)
--- NOTE | 2017-11-29 08:03 | CP.PCM.PN ---
Subjective - Date & Time of Evaluation Date of Evaluation: 11/29/17 Time of Evaluation: 07:05 - Subjective Subjective: Awake, comfortable, denies chest pain, denies shortness of breath Reason for consultation and follow up: Cardiac evaluation for shortness of breath, history of coronary artery disease, atrial fibrillation, PPM Seen and examined by me and Dr. Hemphill Objective - Vital Signs/Intake and Output Vital Signs (last 24 hours): Temp Pulse Resp BP Pulse Ox 97.4 F L 60 18 94/64 L 99 11/28/17 16:44 11/28/17 22:00 11/28/17 16:44 11/28/17 16:44 11/28/17 16:44 Intake and Output: 11/29/17 11/29/17 06:59 18:59 Intake Total 120 Output Total 625 Balance -505 - Medications Medications: Current Medications Albuterol Sulfate (Albuterol 0.083% Inhal Amalia (2.5 Mg/3 Ml) Ud) 2.5 mg IH [id number] PRN PRN Reason: Wheezing Arformoterol Tartrate (Brovana) 15 mcg IH [id number] [facility] Last Admin: 11/29/17 07:27 Dose: 15 mcg Budesonide (Pulmicort Respules) 0.5 mg IH [id number] [facility] Last Admin: 11/29/17 07:27 Dose: 0.5 mg Carbidopa/Levodopa (Sinemet 10/100) 1 tab PO DAILY [facility] Last Admin: 11/28/17 10:11 Dose: 1 tab Folic Acid (Folic Acid) 1 mg PO DAILY [facility] Last Admin: 11/28/17 10:09 Dose: 1 mg Furosemide (Lasix) 40 mg PO DAILY [facility] Insulin Human Regular (Humulin R Low) 0 units SC ACHS [facility] PRN Reason: Protocol Last Admin: 11/28/17 21:31 Dose: Not Given Levalbuterol HCl (Xopenex) 0.63 mg IH [id number] PRN PRN Reason: Shortness of Breath Lisinopril (Zestril) 10 mg PO DAILY [facility] Last Admin: 11/28/17 10:09 Dose: 10 mg Metolazone (Zaroxolyn) 5 mg PO DAILY [facility] Last Admin: 11/28/17 10:09 Dose: 5 mg Potassium Chloride (Klor-Con 10) 10 meq PO BRK [facility] Last Admin: 11/28/17 10:11 Dose: 10 meq Warfarin Sodium (Coumadin) 2.5 mg PO Sowmya@1800 [facility] PRN Reason: Protocol Last Admin: 11/27/17 18:20 Dose: 2.5 mg - Labs Labs: 11/28/17 06:20 11/28/17 06:20 PT 31.6 SECONDS (9.4-12.5) H 11/28/17 06:20 INR 2.69 (0.93-1.08) H 11/28/17 06:20 APTT 40.4 Seconds (25.1-36.5) H 11/26/17 17:30 - Constitutional Appears: No Acute Distress - Head Exam Head Exam: NORMOCEPHALIC - Eye Exam Eye Exam: Normal appearance - ENT Exam ENT Exam: Mucous Membranes Moist - Respiratory Exam Respiratory Exam: Decreased Breath Sounds, NORMAL BREATHING PATTERN - Cardiovascular Exam Cardiovascular Exam: +S1, +S2 Additional comments: PPM Ventricular pacing 60's - GI/Abdominal Exam GI & Abdominal Exam: Soft, Normal Bowel Sounds - Neurological Exam Neurological Exam: Alert, Awake, Oriented x3 - Psychiatric Exam Psychiatric exam: Normal Affect - Skin Skin Exam: Dry, Intact, Warm Assessment and Plan - Assessment and Plan (Free Text) Assessment: A 72 year old male who was sent to ER by PMD due to frequent falls and shortness of breath. History of atrial fibrillation, coronary artery disease, Parkinson's, diabetes, hypertension, pacemaker, COPD, and CVA, pulmonary hypertension. Plan: No respiratory distress Echo done to evaluate LV function, will follow up result Heart rate and blood pressure controlled On Lasix 40 mg daily, Lisinopril 10 mg daily, Zaroxylyn 5 mg daily Potassium 10 meq daily, Coumadin 2.5 mg 5x a week. Continue current treatment Continue current medications Clinically improved from baseline Will follow up Plan and treatment discussed with Dr. Hemphill
--- NOTE | 2017-11-29 08:05 | PN ---
DATE: 11/29/2017 PULMONARY NOTE SUBJECTIVE: The patient appears comfortable this morning. He is not short of breath at rest. PHYSICAL EXAMINATION VITAL SIGNS: Temperature is 97.4, pulse is 60, respirations 18, last blood pressure recorded 94/64. Oxygen saturation on nasal cannula is 99%. HEENT: Normocephalic, atraumatic. No JVD. CARDIOVASCULAR: Systolic ejection murmur at the lower left sternal border. No S3 gallop. LUNGS: Decreased breath sounds at the bases. Minimal rhonchi. No wheezing. EXTREMITIES: Mild edema. No cyanosis, no clubbing. Calves are nontender to palpation. GI: Abdomen is soft, nontender and nondistended. Bowel sounds are positive. SKIN: No acute rash. NEUROLOGIC: Limited at the present time. IMPRESSION: 1. Frequent falls. 2. Failure to thrive. 3. Advanced chronic obstructive pulmonary disease. 4. Increased B-type natriuretic peptide. 5. Anemia. PLAN: The patient appears comfortable this morning. He is not short of breath at rest. He does state to feeling better. I did discus the case with the night nurse at length. The night nurse stated that the patient had a very good night. On physical exam, there is no significant bronchospasm noted. In addition, the alveolar-arterial gradient is now much less. I will continue with the current nebulizer treatments and inhaled steroids for now. The patient also remains on Lasix therapy. Input by Cardiology is noted. Clinical status of the patient is definitely improved - compared to his initial presentation. However, again, the future status/prognosis for this patient remains very guarded/poor. I will discuss the above with Dr. Brock. Kameron Lezama MD [facility]
[2017-11-29] MEDS: metOLazone 5 MG TAB PO SCH (10:32)
[2017-11-29] MEDS: Potassium Chloride 10 mEq ER Tab PO SCH (10:35)
--- NOTE | 2017-11-29 12:23 | PN ---
DATE: 11/29/2017 DAILY PROGRESS NOTE SUBJECTIVE: The patient was seen this Sunday morning in room 372, bed 1, sitting out of bed in the chair. He is comfortable, in good spirits. Awake, alert. Mental status is clear and appropriate at baseline. PHYSICAL EXAMINATION: HEAD AND NECK: Unremarkable except for the left eye ectropion at the lower lid. There is no JVD present. LUNGS: Show improved aeration with some chronic crackles in all lung tang with prolonged expiratory phase and decreased breath sounds with COPD. HEART: Regular, not tachycardiac. EXTREMITIES: Show trace to +1 residual chronic pedal edema. IMPRESSION: 1. Congestive heart failure. 2. Chronic obstructive pulmonary disease. 3. Atherosclerotic cardiovascular disease, status post cerebrovascular accident. PLAN: We are working on the patient going to Transitional Care Unit and then, home. At home he will require an electrical or crank bed with adjustments to be made, head of the bed must be elevated more than 30 degrees in ways that were not possible with a traditional bed because of his CHF, also because of his stroke and arthritis and constant repositioning as needed and can only be provided by electrical or mechanical hospital bed. Junior Brock MD
--- NOTE | 2017-11-29 13:32 | CP.PCM.CON ---
<Go Denise - Last Filed: 11/29/17 13:33> History of Present Illness - History of Present Illness History of Present Illness: Podiatry Consult Note- Dr. Martinez 72 y.o male seen and evaluated for lower extremity skin discoloration and elongated nails. Patient reports pain to the bilateral lower extremity. Reports pain from arthritis. Reports having arthritis for over 10-15 years from when he used to play a lot of football and sustained injuries to the lower extremities. Reports that the right lower extremity rotates outwards from an injury years ago. Reports pain worse with laying in bed. Denies nausea, fever, shortness of breath, chest pains or chills. Past Patient History - Infectious Disease Hx of Infectious Diseases: None - Tetanus Immunizations Tetanus Immunization: Unknown - Past Social History Smoking Status: Former Smoker - CARDIAC Hx Congestive Heart Failure: Yes Hx Hypertension: Yes - PULMONARY Hx Chronic Obstructive Pulmonary Disease (COPD): Yes - NEUROLOGICAL HX Cerebrovascular Accident: Yes - HEENT Hx HEENT Problems: Yes Hx Cataracts: Yes - RENAL Hx Renal Failure: No - ENDOCRINE/METABOLIC Hx Diabetes Mellitus Type 2: Yes - HEMATOLOGICAL/ONCOLOGICAL Hx Blood Disorders: No Hx AIDS: No Hx Anemia: No Hx Cancer: No Hx Chemotherapy: No Hx Cirrhosis: No Hx Hepatitis A: No Hx Hepatitis B: No Hx Hepatitis C: No Hx Metastesis: No Hx Shingles: No Hx Sickle Cell Disease: No Hx Unexplained Bleeding: No - INTEGUMENTARY Hx Dermatological Problems: Yes - MUSCULOSKELETAL/RHEUMATOLOGICAL Hx Arthritis: Yes - GASTROINTESTINAL Other/Comment: hx of hiatal hernia - GENITOURINARY/GYNECOLOGICAL Hx Genitourinary Disorders: No Hx Hematuria: No Hx Incontinence: No Hx Prostate Problems: No Hx Sexually Transmitted Disorders: No Hx Urinary Tract Infection: No - PSYCHIATRIC Hx Psychophysiologic Disorder: No Hx Anxiety: Yes Hx Bipolar Disorder: No Hx Depression: Yes Hx Emotional Abuse: No Hx Hallucinations: No Hx Panic Symptoms: No Hx Post Traumatic Stress Disorder: No Hx Psychosis: No Hx Physical Abuse: No Hx Schizophrenia: No Hx Sexual Abuse: No - SURGICAL HISTORY Hx Surgeries: Yes Hx Amputation: No Hx Appendectomy: No Hx Cardiac Catheterization: Yes Hx Cholecystectomy: No Hx Coronary Stent: No Hx Gastric Bypass Surgery: No Hx Joint Replacement: No Hx Kidney Transplant: No Hx Liver Transplant: No Hx Musculoskeletal Surgery: Yes Hx Open Heart Surgery: No Hx Orthopedic Surgery: Yes (left shoulder) Hx Splenectomy: No Hx Valve Replacement: No - ANESTHESIA Hx Anesthesia: Yes Hx Anesthesia Reactions: No Hx Malignant Hyperthermia: No Meds Allergies/Adverse Reactions: Allergies Allergy/AdvReac Type Severity Reaction Status Date / Time No Known Allergies Allergy Verified 11/30/17 16:03 - Medications Medications: Current Medications Albuterol Sulfate (Albuterol 0.083% Inhal Amalia (2.5 Mg/3 Ml) Ud) 2.5 mg IH [id number] PRN PRN Reason: Wheezing Arformoterol Tartrate (Brovana) 15 mcg IH [id number] [facility] Last Admin: 11/29/17 07:27 Dose: 15 mcg Budesonide (Pulmicort Respules) 0.5 mg IH [id number] [facility] Last Admin: 11/29/17 07:27 Dose: 0.5 mg Carbidopa/Levodopa (Sinemet 10/100) 1 tab PO DAILY [facility] Last Admin: 11/29/17 10:35 Dose: 1 tab Folic Acid (Folic Acid) 1 mg PO DAILY [facility] Last Admin: 11/29/17 10:35 Dose: 1 mg Furosemide (Lasix) 40 mg PO DAILY [facility] Last Admin: 11/29/17 10:34 Dose: 40 mg Insulin Human Regular (Humulin R Low) 0 units SC ACHS [facility] PRN Reason: Protocol Last Admin: 11/29/17 07:30 Dose: Not Given Levalbuterol HCl (Xopenex) 0.63 mg IH [id number] PRN PRN Reason: Shortness of Breath Lisinopril (Zestril) 10 mg PO DAILY [facility] Last Admin: 11/29/17 10:36 Dose: 10 mg Metolazone (Zaroxolyn) 5 mg PO DAILY [facility] Last Admin: 11/29/17 10:32 Dose: 5 mg Potassium Chloride (Klor-Con 10) 10 meq PO BRK [facility] Last Admin: 11/29/17 10:35 Dose: 10 meq Warfarin Sodium (Coumadin) 2.5 mg PO [id number]@1800 [facility] PRN Reason: Protocol Last Admin: 11/27/17 18:20 Dose: 2.5 mg Physical Exam - Constitutional Appears: Non-toxic, No Acute Distress - Extremities Exam Extremities exam: Negative for: calf tenderness Additional comments: VASC: DP and PT unpalpable, CFT delayed to digits, temperature gradient cool to cool, mild edema noted to lower extremity ORTHO: pain with palpation to the entire lower extremity, pain with palpation to the nail plates 1-10 NEURO: protective and gross sensation slight diminished DERM: elongated, yellow discolored nail plate with subungal debris noted to nail plates 1-10, thicken. Generalized diffuse hyperpigmentated skin to the lower extremity. Xerosis noted to the lower extremity with thin shiny skin to entire lower extremity. No open lesions, no erythema, no clinical signs of infection. - Neurological Exam Neurological exam: Alert - Psychiatric Exam Psychiatric exam: Normal Affect, Normal Mood Results - Vital Signs Recent Vital Signs: Last Vital Signs Temp 97.8 F 11/29/17 08:33 Pulse 60 11/29/17 08:33 Resp 20 11/29/17 08:33 BP 117/80 11/29/17 10:36 Pulse Ox 100 11/29/17 08:33 - Labs Result Diagrams: 11/28/17 06:20 11/28/17 06:20 Labs: Laboratory Results - last 24 hr 11/28/17 11/28/17 11/29/17 16:28 21:22 07:18 POC Glucose (mg/dL) 126 H 130 H 92 Assessment & Plan - Assessment and Plan (Free Text) Assessment: 72 y.o male seen and evaluated for lower extremity skin discoloration and painful elongated, mycotic nails. Plan: Patient seen and examined with attending Dr. Martinez Labs, chart, vitals reviewed Elongated nails x10 debrided to normal thickness and length with a nail nipper without incident. Patient tolerated the procedure well Ordered LacHydrin. To be applied daily to lower extremity Ordered multipodus boots. To be worn at all times while in bed Ordered surgical shoes. To be worn at all times while ambulating. Podiatry will continue to follow while in house Ordered ABIs/PVRs to the bilateral lower extremities. Will continue to follow while in house <Shruti Martinez - Last Filed: 12/01/17 16:48> Results - Vital Signs Recent Vital Signs: Last Vital Signs Temp 98.6 F 11/30/17 06:00 Pulse 60 11/30/17 14:00 Resp 20 11/30/17 06:00 BP 147/97 H 07/27/18 09:06 Pulse Ox 99 11/30/17 06:00 - Labs Result Diagrams: 11/30/17 06:00 11/30/17 06:00 Labs: Laboratory Results - last 24 hr 11/30/17 11/30/17 07:25 11:25 POC Glucose (mg/dL) 88 130 H Attending/Attestation - Attestation I have personally seen and examined this patient.: Yes I have fully participated in the care of the patient.: Yes I have reviewed all pertinent clinical information: Yes
--- NOTE | 2017-11-29 18:12 | CARD ---
APPROVED REPORT Date of service: 11/27/2017 EXAM: Two-dimensional and M-mode echocardiogram with Doppler and color Doppler. INDICATION 2D DIMENSIONS Left Atrium (2D)3.5 (1.6-4.0cm)IVSd1.3 (0.7-1.1cm) LVDd4.0 (3.9-5.9cm)LVOT Diameter2.1 (1.8-2.4cm) PWd1.4 (0.7-1.1cm)LVDs3.2 (2.5-4.0cm) FS (%) 19.2 %LVEF (%)40.0 (>50%) M-Mode DIMENSIONS Aortic Root3.00 (2.2-3.7cm)Aortic Cusp Exc.1.00 (1.5-2.0cm) Aortic Valve AoV Peak Baaufgzc029.0cm/sAoV VTI77.5cmAO Peak GR.54mmHg LVOT Peak Bwdccons62.7cm/sLVOT VTI18.80cmAO Mean GR.29mmHg PIPER (VMAX)0.90tz3ZFM (VTI)0.84cm2 Mitral Valve MV E Xgthcrpx416.0cm/s TDI Lateral E' Peak V7.82cm/sMedial E' Peak V7.24cm/sE/Lateral E'16.1 E/Medial E'17.4 Tricuspid Valve TR Peak Egufukov399zr/sRAP [id number] Peak Gr.48mmHg [id number] LEFT VENTRICLE The left ventricle is normal size. There is mild concentric left ventricular hypertrophy. Left ventricle systolic function is low normal.EF-50-55% There is normal LV segmental wall motion. A fib No left ventricle thrombus noted on this study. There is no ventricular septal defect visualized. There is no left ventricular aneurysm. There is no mass noted in the left ventricle. RIGHT VENTRICLE The right ventricle is normal size. There is normal right ventricular wall thickness. The right ventricular systolic function is normal. There is a pacemaker lead in the right ventricle. ATRIA The left atrium size is normal. The right atrium size is normal. There is a catheter/pacemaker lead seen in the right atrium. The interatrial septum is intact with no evidence for an atrial septal defect. AORTIC VALVE The aortic valve is calcified and displays decreased opening. There is trace aortic regurgitation. There is moderate to severe valvular aortic stenosis. There is no aortic valvular vegetation. MITRAL VALVE The mitral valve is thickened but opens well. Mitral annular calcification is moderate to severe. Mitral regurgitation is trace. There is no mitral valve stenosis. There is no evidence of mitral valve prolapse. TRICUSPID VALVE The tricuspid valve leaflets are thickened , but open well. There is moderate tricuspid regurgitation.RVSP-58 mmof hg. There is no tricuspid valve stenosis. There is no tricuspid valve prolapse or vegetation. PULMONIC VALVE The pulmonic valve is not well visualized. GREAT VESSELS The aortic root is normal in size. The ascending aorta is normal in size. The pulmonary artery is normal. The IVC is normal in size and collapses >50% with inspiration. PERICARDIAL EFFUSION There is no pleural effusion. There is no pericardial effusion. <Conclusion> The left ventricle is normal size. There is mild concentric left ventricular hypertrophy. Left ventricle systolic function is low normal.EF-50-55% There is trace aortic regurgitation. There is moderate to severe valvular aortic stenosis. Mitral regurgitation is trace. There is moderate tricuspid regurgitation.RVSP-58 mmof hg. There is no pericardial effusion. The IVC is normal in size and collapses >50% with inspiration. PPM lead noted in RA/RV
[2017-11-30] MEDS: Insulin Reg-LOW-Coverage SC SCH ×3 (00:06→12:36)
[2017-11-30 06:41] LABS: BASO # 0.02 K/mm3 (0.0-2.0); BASO % 0.3 % (0.0-3.0); EOS # 0.5 (0.0-0.7); EOS % 7.4 % (1.5-5.0); GRAN # 4.59 (1.4-6.5); GRAN % 63.8 % (50.0-68.0); HEMOGLOBIN 10.6 g/dL (14.0-18.0); LYMPH # 1.3 (1.2-3.4); LYMPH % 18.2 % (22.0-35.0); MEAN CELL VOLUME 79.4 fl (80.0-105.0); MEAN CORPUSCULAR HEMOGLOBIN 24.8 pg (25.0-35.0); MEAN CORPUSCULAR HGB CONC 31.2 g/dl (31.0-37.0); MEAN PLATELET VOLUME 10.9 fl (7.0-11.0); MONO # 0.7 (0.1-0.6); MONO % 10.3 % (1.0-6.0); RBC 4.28 10^6/uL (3.5-6.1); RED CELL DISTRIBUTION WIDTH 17.3 % (11.5-14.5); WHITE BLOOD COUNT 7.2 10^3/ul (4.5-11.0)
[2017-11-30 06:44] LABS: INR 2.19 (0.93-1.08); PROTHROMBIN TIME 25.6 SECONDS (9.4-12.5)
[2017-11-30 06:49] LABS: BLOOD UREA NITROGEN 48 mg/dL (7-21); CALCIUM 8.9 mg/dL (8.4-10.5); GFR AFRICAN-AMERICAN > 60; GFR NON-AFRICAN AMERICAN 60
[2017-11-30] MEDS: Budesonide 0.5 mg/2 ml Inhal Susp UD IH SCH (07:11)
[2017-11-30] MEDS: Arformoterol 15 mcg/2 ml Inh Sol IH SCH (07:11)
--- NOTE | 2017-11-30 07:18 | CP.PCM.PN ---
Subjective - Date & Time of Evaluation Date of Evaluation: 11/30/17 Time of Evaluation: 06:15 - Subjective Subjective: Awake, repositioned in bed, denies chest pain, denies shortness of breath Reason for consultation and follow up: Cardiac evaluation for shortness of breath, history of coronary artery disease, atrial fibrillation, PPM Seen and examined by me and Dr. Hemphill Objective - Vital Signs/Intake and Output Vital Signs (last 24 hours): Temp Pulse Resp BP Pulse Ox 97 F L 60 18 111/67 100 11/29/17 16:37 11/30/17 02:00 11/29/17 16:37 11/29/17 16:37 11/29/17 16:37 Intake and Output: 11/30/17 11/30/17 06:59 18:59 Intake Total 1260 Output Total 1950 Balance -690 - Medications Medications: Current Medications Albuterol Sulfate (Albuterol 0.083% Inhal Amalia (2.5 Mg/3 Ml) Ud) 2.5 mg IH [id number] PRN PRN Reason: Wheezing Arformoterol Tartrate (Brovana) 15 mcg IH [id number] [facility] Last Admin: 11/30/17 07:11 Dose: 15 mcg Budesonide (Pulmicort Respules) 0.5 mg IH [id number] [facility] Last Admin: 11/30/17 07:11 Dose: 0.5 mg Carbidopa/Levodopa (Sinemet 10/100) 1 tab PO DAILY [facility] Last Admin: 11/29/17 10:35 Dose: 1 tab Folic Acid (Folic Acid) 1 mg PO DAILY [facility] Last Admin: 11/29/17 10:35 Dose: 1 mg Furosemide (Lasix) 40 mg PO DAILY [facility] Last Admin: 11/29/17 10:34 Dose: 40 mg Insulin Human Regular (Humulin R Low) 0 units SC ACHS [facility] PRN Reason: Protocol Last Admin: 11/30/17 00:06 Dose: Not Given Lactic Acid (Lac-Hydrin 12% Cream (140 G)) 0 ea TOP DAILY [facility] Levalbuterol HCl (Xopenex) 0.63 mg IH [id number] PRN PRN Reason: Shortness of Breath Lisinopril (Zestril) 10 mg PO DAILY [facility] Last Admin: 11/29/17 10:36 Dose: 10 mg Metolazone (Zaroxolyn) 5 mg PO DAILY [facility] Last Admin: 11/29/17 10:32 Dose: 5 mg Potassium Chloride (Klor-Con 10) 10 meq PO BRK [facility] Last Admin: 11/29/17 10:35 Dose: 10 meq Warfarin Sodium (Coumadin) 2.5 mg PO [email or web address] [facility] PRN Reason: Protocol Last Admin: 11/29/17 18:28 Dose: 2.5 mg - Labs Labs: 11/30/17 06:00 11/30/17 06:00 PT 25.6 SECONDS (9.4-12.5) H 11/30/17 06:00 INR 2.19 (0.93-1.08) H 11/30/17 06:00 APTT 40.4 Seconds (25.1-36.5) H 11/26/17 17:30 - Constitutional Appears: No Acute Distress - Eye Exam Eye Exam: Normal appearance - ENT Exam ENT Exam: Mucous Membranes Moist - Respiratory Exam Respiratory Exam: Clear to Ausculation Bilateral, NORMAL BREATHING PATTERN - Cardiovascular Exam Cardiovascular Exam: +S1, +S2 Additional comments: PPM Telemetry- Ventricular pacing 60's - GI/Abdominal Exam GI & Abdominal Exam: Soft, Normal Bowel Sounds - Extremities Exam Additional comments: multipodus boot intact - Neurological Exam Neurological Exam: Alert, Awake, Oriented x3 - Psychiatric Exam Psychiatric exam: Normal Affect - Skin Skin Exam: Dry, Warm Assessment and Plan - Assessment and Plan (Free Text) Assessment: A 72 year old male who was sent to ER by PMD due to frequent falls and shortness of breath. History of atrial fibrillation, coronary artery disease, Parkinson's, diabetes, hypertension, pacemaker, COPD, and CVA, pulmonary hypertension. Plan: No respiratory distress Clinically improved from baseline Echo done =-LVEF 55%,trace AR/MR, moderate to severe aortic stenosis Heart rate and blood pressure controlled On Lasix 40 mg daily, Lisinopril 10 mg daily, Zaroxylyn 5 mg daily Potassium 10 meq daily, Coumadin 2.5 mg 5x a week. Continue current treatment Continue current medications Podiatry on consult Ultrasound of lower extremities done pending results Will follow up Plan and treatment discussed with Dr. Hemphill
[2017-11-30] MEDS: Potassium Chloride 10 mEq ER Tab PO SCH (09:05)
[2017-11-30] MEDS: metOLazone 5 MG TAB PO SCH (09:06)
[2017-11-30 09:09] VITALS: BP 147/97
[2017-11-30] MEDS ORDERED: Ammonium Lactate 12% Cream (140 g) TOP SCH (10:00)
--- NOTE | 2017-11-30 10:00 | PN ---
DATE: 11/30/2017 PULMONARY NOTE SUBJECTIVE: The patient appears comfortable this morning. He is not short of breath at rest. PHYSICAL EXAMINATION: VITAL SIGNS: (Last noted in the computer): Temperature is 97, pulse 60, respirations 18, blood pressure 111/67. Oxygen saturation on nasal cannula is 100%. HEENT: Normocephalic, atraumatic. No JVD. CARDIOVASCULAR: Systolic ejection murmur at the lower left sternal border. No S3 gallop. LUNGS: Decreased breath sounds at the bases. Very minimal/less rhonchi. No wheezing. EXTREMITIES: Mild edema. No cyanosis. No clubbing. Calves are nontender to palpation. GI: Abdomen is soft, nontender and nondistended. Bowel sounds are positive. SKIN: No acute rash. NEUROLOGIC: Limited at the present time. IMPRESSION: 1. Frequent falls. 2. Failure to thrive. 3. Advanced chronic obstructive pulmonary disease. 4. Increased B-type natriuretic peptide. 5. Anemia. PLAN: The patient appears comfortable this morning. He is not short of breath at rest. He does state to feeling better. He is awake and alert. On physical exam, there is no significant bronchospasm noted. In addition, the oxygen saturation on nasal cannula is now 100%. I will continue with the current nebulizer treatments and inhaled steroids for now. The patient also remains on daily Lasix. Input by Cardiology is noted. Clinical status of the patient is definitely improved - compared to his initial presentation. However, again, the future status/prognosis for this patient remains very guarded at best/poor. I will discuss the above with the attending physician. Kameron Lezama MD MTDDougie
--- NOTE | 2017-11-30 10:37 | CP.PCM.PN ---
Subjective - Date & Time of Evaluation Date of Evaluation: 11/30/17 Time of Evaluation: 10:33 - Subjective Subjective: Podiatry Consult Note- Dr. Sin 72 y.o male seen and evaluated for lower extremity discoloration and painful lower extremity. Patient is seen resting comfortably out of bed, in a chair. Patient is awake and alert. Patient reports the same pain to the bilateral lower extremities. Seen with surgical shoes on. Denies nausea, fever, shortness of breath, chest pains or chills. Objective - Vital Signs/Intake and Output Vital Signs (last 24 hours): Temp Pulse Resp BP Pulse Ox 97 F L 100 H 18 147/97 H 100 11/29/17 16:37 11/30/17 09:06 11/29/17 16:37 11/30/17 09:06 11/29/17 16:37 Intake and Output: 11/30/17 11/30/17 06:59 18:59 Intake Total 1260 Output Total 1950 Balance -690 - Medications Medications: Current Medications Albuterol Sulfate (Albuterol 0.083% Inhal Amalia (2.5 Mg/3 Ml) Ud) 2.5 mg IH [id number] PRN PRN Reason: Wheezing Arformoterol Tartrate (Brovana) 15 mcg IH [id number] [facility] Last Admin: 11/30/17 07:11 Dose: 15 mcg Budesonide (Pulmicort Respules) 0.5 mg IH [id number] [facility] Last Admin: 11/30/17 07:11 Dose: 0.5 mg Carbidopa/Levodopa (Sinemet 10/100) 1 tab PO DAILY [facility] Last Admin: 11/30/17 09:06 Dose: 1 tab Folic Acid (Folic Acid) 1 mg PO DAILY [facility] Last Admin: 11/30/17 09:06 Dose: 1 mg Furosemide (Lasix) 40 mg PO DAILY [facility] Last Admin: 11/30/17 09:06 Dose: 40 mg Insulin Human Regular (Humulin R Low) 0 units SC ACHS [facility] PRN Reason: Protocol Last Admin: 11/30/17 08:18 Dose: Not Given Lactic Acid (Lac-Hydrin 12% Cream (140 G)) 0 ea TOP DAILY [facility] Levalbuterol HCl (Xopenex) 0.63 mg IH [id number] PRN PRN Reason: Shortness of Breath Lisinopril (Zestril) 10 mg PO DAILY [facility] Last Admin: 11/30/17 09:06 Dose: 10 mg Metolazone (Zaroxolyn) 5 mg PO DAILY [facility] Last Admin: 11/30/17 09:06 Dose: 5 mg Potassium Chloride (Klor-Con 10) 10 meq PO BRK [facility] Last Admin: 11/30/17 09:05 Dose: 10 meq Warfarin Sodium (Coumadin) 2.5 mg PO [id number] [facility] PRN Reason: Protocol Last Admin: 11/29/17 18:28 Dose: 2.5 mg - Labs Labs: 11/30/17 06:00 11/30/17 06:00 PT 25.6 SECONDS (9.4-12.5) H 11/30/17 06:00 INR 2.19 (0.93-1.08) H 11/30/17 06:00 APTT 40.4 Seconds (25.1-36.5) H 11/26/17 17:30 - Extremities Exam Extremities Exam: absent: Calf Tenderness Additional comments: VASC: DP and PT unpalpable, CFT delayed to digits, temperature gradient cool to cool, mild edema noted to lower extremity bilaterally ORTHO: pain with palpation to the entire lower extremity NEURO: protective and gross sensation slight diminished DERM: nails to hygenic length and thickness. Generalized diffuse hyperpigmentated skin to the lower extremity. Xerosis noted to the lower extremity with thin shiny skin to entire lower extremity. No open lesions, no erythema, no clinical signs of infection. - Neurological Exam Neurological Exam: Alert, Awake Assessment and Plan - Assessment and Plan (Free Text) Assessment: 72 y.o male seen and evaluated for lower extremity skin discoloration likely secondary to PAD and painful lower extremity secondary to PAD and arthiritis Plan: Patient seen and examined with attending Dr. Sin/Dr. Martinez Labs, chart, vitals reviewed Applied lotion to bilateral lower extremity. c/w multipodus boots to the lower extremity. To be worn at all times while in bed WBAT in surgical shoes at all times Podiatry will continue to follow while in house ABIs/PVRs to the bilateral lower extremities-pending Will continue to follow while in house
[2017-11-30 10:51] VITALS: RESP 20; TEMP 98.6; O2SAT 99
[2017-11-30 15:43] VITALS: PULSE 60
--- NOTE | 2017-12-02 00:16 | US ---
PROCEDURE: Lower extremity RASHARD exam HISTORY: Peripheral vascular disease with pain and claudication. Diabetes. Previous smoker. PHYSICIAN(S): Michael Fritz MD. FINDINGS: The resting RASHARD's are inaccurate. The brachial systolic pressures are symmetric. The low thigh PVR waveforms are normal and symmetric. The ankle and metatarsal waveforms are severely blunted bilaterally. This is consistent with bilateral popliteal, trifurcation, and/ or tibial disease. IMPRESSION: 1. Bilateral popliteal, trifurcation, and/ or tibial disease.
== END 2017-11-30 15:32 | DRG 192 ==
LOC: ED 15:47 → ERH 19:28 → 3RSO 21:22
PROVIDERS: ADMIT Internal Medicine; ATTEND Internal Medicine
DX: J44.1 Chronic obstructive pulmonary disease with (acute) exacerbation (principal); I11.0 Hypertensive heart disease with heart failure; I50.9 Heart failure, unspecified; I73.9 Peripheral vascular disease, unspecified; R62.7 Adult failure to thrive; D64.9 Anemia, unspecified; E11.9 Type 2 diabetes mellitus without complications; G20 Parkinson's disease; G47.30 Sleep apnea, unspecified; I25.10 Atherosclerotic heart disease of native coronary artery without angina pectoris; I27.20 Pulmonary hypertension, unspecified; I08.2 Rheumatic disorders of both aortic and tricuspid valves; I48.2 Chronic atrial fibrillation; M06.9 Rheumatoid arthritis, unspecified; W19.XXXA Unspecified fall, initial encounter; Z79.01 Long term (current) use of anticoagulants; Z95.0 Presence of cardiac pacemaker; Z91.19 Patient's noncompliance with other medical treatment and regimen; Z87.891 Personal history of nicotine dependence; Z86.73 Personal history of transient ischemic attack (TIA), and cerebral infarction without residual deficits; R29.6 Repeated falls

== ENCOUNTER 2017-11-30 15:32 | Inpatient (IN) | payer MEDICARE ==
[2017-11-30] MEDS ORDERED: Levalbuterol 0.63 MG/3 ML Inhal Soln UD IH PRN (16:03)
[2017-11-30] MEDS ORDERED: Albuterol 0.083% Inhal Sol (2.5 mg/3 mL) UD INH PRN (16:22)
[2017-11-30 17:12] VITALS: BMI 31.3
[2017-11-30] MEDS: Insulin Reg-LOW-Coverage SC SCH ×2 (18:07→22:05)
[2017-11-30] MEDS: Arformoterol 15 mcg/2 ml Inh Sol IH SCH (20:35)
[2017-11-30] MEDS: Budesonide 0.5 mg/2 ml Inhal Susp UD IH SCH (20:35)
[2017-11-30] MEDS ORDERED: Pneumococcal 23-Valent Vaccine IM ONE (21:39)
[2017-12-01] MEDS: Insulin Reg-LOW-Coverage SC SCH ×4 (06:34→21:37)
[2017-12-01] MEDS: Arformoterol 15 mcg/2 ml Inh Sol IH SCH ×2 (07:04→21:18)
[2017-12-01] MEDS: Budesonide 0.5 mg/2 ml Inhal Susp UD IH SCH ×2 (07:05→21:19)
--- NOTE | 2017-12-01 07:31 | PN ---
DATE: 12/01/2017 PULMONARY NOTE SUBJECTIVE: The patient appears comfortable this morning. He is not short of breath at rest. PHYSICAL EXAMINATION: VITAL SIGNS: (last noted in the computer): Temperature is 97.7, pulse 85, respirations 18/20, blood pressure 116/64. Oxygen saturation on nasal cannula is 99%. HEENT: Normocephalic, atraumatic. No JVD. CARDIOVASCULAR: Systolic ejection murmur at the lower left sternal border. No S3 gallop. LUNGS: Decreased breath sounds at the bases. Minimal/less rhonchi. No wheezing. EXTREMITIES: Mild edema. No cyanosis. No clubbing. Calves are nontender to palpation. GI: Abdomen is soft, nontender and nondistended. Bowel sounds are positive. SKIN: No acute rash. NEUROLOGIC: Limited at the present time. IMPRESSION: 1. Frequent falls. 2. Failure to thrive. 3. Advanced chronic obstructive pulmonary disease. 4. Increased B-type natriuretic peptide. 5. Anemia. PLAN: The patient appears comfortable this morning. He is not short of breath at rest. He does state to feeling better overall. On physical exam, there is less bronchospasm noted. In addition, the alveolar-arterial gradient is also less. I will continue with the current nebulizer treatments and inhaled steroids for now. The patient remains on oral Lasix therapy. Cardiology evaluation is ongoing. Clinical status of the patient is significantly improved - compared to his initial presentation. However, again, unfortunately, the future status/prognosis for this patient remains very guarded at best/poor. The patient is now on the Transitional Unit - where he will participate with physical therapy. I will discuss the above with Dr. Brock. Kameron Lezama MD [facility]
[2017-12-01] MEDS: Potassium Chloride 10 mEq ER Tab PO SCH (07:57)
--- NOTE | 2017-12-01 09:28 | CP.PCM.PN ---
<Becca Macias - Last Filed: 12/01/17 09:57> Subjective - Date & Time of Evaluation Date of Evaluation: 12/01/17 Time of Evaluation: 09:23 - Subjective Subjective: Podiatry Progress Note for Dr. Sin 72 yo male seen and evaluated for lower extremity skin discoloration and xerosis. Patient reports pain today to bilateral lower extremities, especially while laying in bed. He denies any other pedal complaints at this time. He denies N/V/F/SOB/C/CP. Objective - Vital Signs/Intake and Output Vital Signs (last 24 hours): Temp Pulse Resp BP Pulse Ox 97.7 F 85 20 116/64 11/30/17 21:23 11/30/17 21:44 11/30/17 21:23 11/30/17 21:23 Intake and Output: 12/01/17 12/01/17 06:59 18:59 Intake Total 260 Balance 260 - Medications Medications: Current Medications Albuterol Sulfate (Albuterol 0.083% Inhal Amalia (2.5 Mg/3 Ml) Ud) 2.5 mg INH [id number] PRN; Protocol PRN Reason: Wheezing Arformoterol Tartrate (Brovana) 15 mcg IH [id number] [facility] PRN Reason: Protocol Last Admin: 12/01/17 07:04 Dose: 15 mcg Budesonide (Pulmicort Respules) 0.5 mg IH [id number] [facility] PRN Reason: Protocol Last Admin: 12/01/17 07:05 Dose: 0.5 mg Carbidopa/Levodopa (Sinemet 10/100) 1 tab PO DAILY [facility] PRN Reason: Protocol Folic Acid (Folic Acid) 1 mg PO DAILY [facility] PRN Reason: Protocol Furosemide (Lasix) 40 mg PO DAILY [facility] PRN Reason: Protocol Insulin Human Regular (Humulin R Low) 0 units SC ACHS [facility] PRN Reason: Protocol Last Admin: 12/01/17 06:34 Dose: Not Given Lactic Acid (Lac-Hydrin 12% Cream (140 G)) 1 ea TOP DAILY [facility] PRN Reason: Protocol Levalbuterol HCl (Xopenex) 0.63 mg IH [id number] PRN; Protocol PRN Reason: Shortness of Breath Lisinopril (Zestril) 10 mg PO DAILY [facility] PRN Reason: Protocol Metolazone (Zaroxolyn) 5 mg PO DAILY [facility] PRN Reason: Protocol Potassium Chloride (Klor-Con 10) 10 meq PO BRK [facility] PRN Reason: Protocol Last Admin: 12/01/17 07:57 Dose: 10 meq Warfarin Sodium (Coumadin) 2.5 mg PO MOTUTHFRSA [facility] PRN Reason: Protocol Last Admin: 11/30/17 18:06 Dose: 2.5 mg - Constitutional Appears: Well, Non-toxic, No Acute Distress - Head Exam Head Exam: ATRAUMATIC, NORMOCEPHALIC - Extremities Exam Additional comments: VASC: DP and PT pulses non-palpable, CFT delayed to all digits, temperature gradient cool to cool, mild edema noted circumfentially to bilateral lower extremities ORTHO: pain upon palpation to the entire lower extremity, MMT 4/5 bilaterally NEURO: protective and gross sensation slightly diminished DERM: Generalized diffuse hyperpigmentation of skin to bilateral lower extremities. Xerosis noted with friable, thin, shiny skin to entire lower extremities. No open lesions, no erythema, no clinical signs of infection. - Neurological Exam Neurological Exam: Alert, Awake, Oriented x3 - Psychiatric Exam Psychiatric exam: Normal Affect, Normal Mood Assessment and Plan - Assessment and Plan (Free Text) Assessment: 72 yo male seen and evaluated for lower extremity skin discoloration and xerosis Plan: Patient seen and examined with attending Dr. Sin Labs, chart, vitals reviewed LacHydrin applied to bilateral lower extremities. LacHydrin to be applied daily to bilateral lower extremities Multipodus boots to be worn at all times while in bed Surgical shoes to be worn at all times while ambulating. ABIs/PVRs reviewed; Right .62, Left 1.14 Podiatry will continue to follow while in house <Juan Manuel Sin - Last Filed: 12/04/17 12:10> Objective - Vital Signs/Intake and Output Vital Signs (last 24 hours): Temp Pulse Resp BP Pulse Ox 98.0 F 60 20 119/63 100 12/04/17 10:00 12/04/17 10:00 12/04/17 10:00 12/04/17 10:00 12/04/17 10:00 - Medications Medications: Current Medications Albuterol Sulfate (Albuterol 0.083% Inhal Amalia (2.5 Mg/3 Ml) Ud) 2.5 mg INH [id number] PRN; Protocol PRN Reason: Wheezing Arformoterol Tartrate (Brovana) 15 mcg IH [id number] [facility] PRN Reason: Protocol Last Admin: 12/04/17 07:13 Dose: 15 mcg Budesonide (Pulmicort Respules) 0.5 mg IH [id number] [facility] PRN Reason: Protocol Last Admin: 12/04/17 07:13 Dose: 0.5 mg Carbidopa/Levodopa (Sinemet 10/100) 1 tab PO DAILY [facility] PRN Reason: Protocol Last Admin: 12/04/17 10:02 Dose: 1 tab Folic Acid (Folic Acid) 1 mg PO DAILY [facility] PRN Reason: Protocol Last Admin: 12/04/17 09:59 Dose: 1 mg Furosemide (Lasix) 40 mg PO DAILY [facility] PRN Reason: Protocol Last Admin: 12/04/17 10:00 Dose: 40 mg Ibuprofen (Motrin Tab) 600 mg PO Q6H PRN PRN Reason: Pain, moderate (4-7) Last Admin: 12/04/17 03:51 Dose: 600 mg Insulin Human Regular (Humulin R Low) 0 units SC ACHS [facility] PRN Reason: Protocol Last Admin: 12/04/17 12:05 Dose: Not Given Lactic Acid (Lac-Hydrin 12% Cream (140 G)) 1 ea TOP DAILY [facility] PRN Reason: Protocol Last Admin: 12/04/17 10:00 Dose: 1 applic Levalbuterol HCl (Xopenex) 0.63 mg IH [id number] PRN; Protocol PRN Reason: Shortness of Breath Last Admin: 12/02/17 01:29 Dose: 0.63 mg Lisinopril (Zestril) 10 mg PO DAILY [facility] PRN Reason: Protocol Last Admin: 12/04/17 10:03 Dose: 10 mg Metolazone (Zaroxolyn) 5 mg PO DAILY [facility] PRN Reason: Protocol Last Admin: 12/04/17 10:03 Dose: 5 mg Potassium Chloride (Klor-Con 10) 10 meq PO BRK [facility] PRN Reason: Protocol Last Admin: 12/04/17 07:49 Dose: 10 meq Warfarin Sodium (Coumadin) 2.5 mg PO MOTUTHFRSA [facility] PRN Reason: Protocol Last Admin: 12/03/17 17:42 Dose: 2.5 mg - Labs Labs: 12/04/17 06:30 12/04/17 06:30 PT 25.2 SECONDS 12/04/17 06:30 INR 2.16 12/04/17 06:30 APTT 37.1 Seconds 12/04/17 06:30 Attending/Attestation - Attestation I have personally seen and examined this patient.: Yes I have fully participated in the care of the patient.: Yes I have reviewed all pertinent clinical information, including history, physical exam and plan: Yes
[2017-12-01] MEDS: Ammonium Lactate 12% Cream (140 g) TOP SCH (09:35)
[2017-12-01] MEDS: metOLazone 5 MG TAB PO SCH (09:37)
[2017-12-01] MEDS ORDERED: metOLazone 2.5 MG TAB PO SCH (10:00)
--- NOTE | 2017-12-01 11:32 | CP.PCM.CON ---
History of Present Illness - History of Present Illness History of Present Illness: Awake, alert, no distress,denies shortness of breath. Reason for consultation: Continuity of care in TCU,history of coronary artery disease,atrial fibrillation, PPM Brief history of present illness: Transferred to TCU for reconditioning. A 72 year old male who was sent to ER by PMD due to frequent falls and shortness of breath. History of atrial fibrillation, coronary artery disease, Parkinson's, diabetes, hypertension, pacemaker, COPD, and CVA, pulmonary hypertension. Seen and examined by me and Dr. Machado Review of Systems - Review of Systems All systems: reviewed and no additional remarkable complaints except Review of Systems: per HPI Past Patient History - Infectious Disease Hx of Infectious Diseases: None - Tetanus Immunizations Tetanus Immunization: Unknown - Past Social History Smoking Status: Former Smoker - CARDIAC Hx Cardiac Disorders: Yes Hx Hypertension: Yes - PULMONARY Hx Chronic Obstructive Pulmonary Disease (COPD): Yes - NEUROLOGICAL HX Cerebrovascular Accident: Yes (affected L side) - HEENT Hx HEENT Problems: Yes Hx Cataracts: Yes - RENAL Hx Renal Failure: No - ENDOCRINE/METABOLIC Hx Diabetes Mellitus Type 2: Yes - HEMATOLOGICAL/ONCOLOGICAL Hx Blood Disorders: No Hx AIDS: No Hx Anemia: No Hx Cancer: No Hx Chemotherapy: No Hx Cirrhosis: No Hx Hepatitis A: No Hx Hepatitis B: No Hx Hepatitis C: No Hx Metastesis: No Hx Shingles: No Hx Sickle Cell Disease: No Hx Unexplained Bleeding: No - INTEGUMENTARY Hx Dermatological Problems: Yes - MUSCULOSKELETAL/RHEUMATOLOGICAL Hx Falls: Yes (past) - GASTROINTESTINAL Hx Gastrointestinal Disorders: No - GENITOURINARY/GYNECOLOGICAL Hx Genitourinary Disorders: (hx esbl/vre urine 01/06/13) Hx Reproductive Disorders: No - PSYCHIATRIC Hx Psychophysiologic Disorder: No Hx Anxiety: Yes Hx Bipolar Disorder: No Hx Depression: Yes Hx Emotional Abuse: No Hx Hallucinations: No Hx Panic Symptoms: No Hx Post Traumatic Stress Disorder: No Hx Psychosis: No Hx Physical Abuse: No Hx Schizophrenia: No Hx Sexual Abuse: No - SURGICAL HISTORY Hx Surgeries: Yes Hx Amputation: No Hx Appendectomy: No Hx Cardiac Catheterization: Yes Hx Cholecystectomy: No Hx Coronary Stent: No Hx Gastric Bypass Surgery: No Hx Joint Replacement: No Hx Kidney Transplant: No Hx Liver Transplant: No Hx Musculoskeletal Surgery: Yes Hx Open Heart Surgery: No Hx Orthopedic Surgery: Yes (left shoulder) Hx Splenectomy: No Hx Valve Replacement: No - ANESTHESIA Hx Anesthesia: Yes Hx Anesthesia Reactions: No Hx Malignant Hyperthermia: No Meds Allergies/Adverse Reactions: Allergies Allergy/AdvReac Type Severity Reaction Status Date / Time No Known Allergies Allergy Verified 11/30/17 16:03 - Medications Medications: Current Medications Albuterol Sulfate (Albuterol 0.083% Inhal Amalia (2.5 Mg/3 Ml) Ud) 2.5 mg INH [id number] PRN; Protocol PRN Reason: Wheezing Arformoterol Tartrate (Brovana) 15 mcg IH [id number] [facility] PRN Reason: Protocol Last Admin: 12/01/17 07:04 Dose: 15 mcg Budesonide (Pulmicort Respules) 0.5 mg IH [id number] [facility] PRN Reason: Protocol Last Admin: 12/01/17 07:05 Dose: 0.5 mg Carbidopa/Levodopa (Sinemet 10/100) 1 tab PO DAILY [facility] PRN Reason: Protocol Last Admin: 12/01/17 09:36 Dose: 1 tab Folic Acid (Folic Acid) 1 mg PO DAILY [facility] PRN Reason: Protocol Last Admin: 12/01/17 09:35 Dose: 1 mg Furosemide (Lasix) 40 mg PO DAILY [facility] PRN Reason: Protocol Last Admin: 12/01/17 09:36 Dose: 40 mg Insulin Human Regular (Humulin R Low) 0 units SC ACHS [facility] PRN Reason: Protocol Last Admin: 12/01/17 06:34 Dose: Not Given Lactic Acid (Lac-Hydrin 12% Cream (140 G)) 1 ea TOP DAILY [facility] PRN Reason: Protocol Last Admin: 12/01/17 09:35 Dose: 1 applic Levalbuterol HCl (Xopenex) 0.63 mg IH [id number] PRN; Protocol PRN Reason: Shortness of Breath Lisinopril (Zestril) 10 mg PO DAILY [facility] PRN Reason: Protocol Last Admin: 12/01/17 09:37 Dose: 10 mg Metolazone (Zaroxolyn) 5 mg PO DAILY [facility] PRN Reason: Protocol Last Admin: 12/01/17 09:37 Dose: 5 mg Potassium Chloride (Klor-Con 10) 10 meq PO BRK [facility] PRN Reason: Protocol Last Admin: 12/01/17 07:57 Dose: 10 meq Warfarin Sodium (Coumadin) 2.5 mg PO MOTUTHFRSA [facility] PRN Reason: Protocol Last Admin: 11/30/17 18:06 Dose: 2.5 mg Physical Exam - Constitutional Appears: No Acute Distress - Eye Exam Eye Exam: Normal appearance - ENT Exam ENT Exam: Mucous Membranes Moist - Respiratory Exam Respiratory Exam: Decreased Breath Sounds, NORMAL BREATHING PATTERN - Cardiovascular Exam Cardiovascular Exam: +S1, +S2 - GI/Abdominal Exam GI & Abdominal Exam: Normal Bowel Sounds, Soft - Extremities Exam Additional comments: 1 +edema, dry skin,pain to touch lower extremities - Neurological Exam Neurological exam: Alert, Oriented x3 - Psychiatric Exam Psychiatric exam: Normal Affect - Skin Skin Exam: Intact, Warm Results - Vital Signs Recent Vital Signs: Last Vital Signs Temp 97.7 F 11/30/17 21:23 Pulse 85 11/30/17 21:44 Resp 20 11/30/17 21:23 BP 136/74 12/01/17 09:37 Pulse Ox - Labs Labs: Laboratory Results - last 24 hr 11/30/17 11/30/17 12/01/17 17:06 21:57 01:01 POC Glucose (mg/dL) 104 106 98 12/01/17 12/01/17 05:00 11:04 POC Glucose (mg/dL) 100 135 H Assessment & Plan - Assessment and Plan (Free Text) Assessment: A 72 year old male who was sent to ER by PMD due to frequent falls and shortness of breath. History of atrial fibrillation, coronary artery disease, Parkinson's, diabetes, hypertension, pacemaker, COPD, and CVA, pulmonary hypertension.Echo done =-LVEF 55%,trace AR/MR, moderate to severe aortic stenosis.RASHARD/PVR done. Followed up by Podiatry. Plan: Transferred to TCU for reconditioning For physical therapy No respiratory distress Cardiac status stable Heart rate and blood pressure controlled On Lasix 40 mg daily, Lisinopril 10 mg daily, Zaroxylyn 5 mg daily Potassium 10 meq daily, Coumadin 2.5 mg 5x a week. Continue current treatment Continue current medications Will follow up Plan and treatment discussed with Dr. Machado Thank you for the opportunity of taking care of Mr. Miquel Salazar - Date & Time Date: 12/01/17 Time: 06:35
--- NOTE | 2017-12-01 17:53 | HP ---
This is the admitting history and physical for the Transitional Care Unit. HISTORY OF PRESENT ILLNESS: The patient is a 72-year-old male who was admitted after falling several times at home, hitting his head, exquisite pain over the left lower ribs and weakness. Too weak to stand and walk. The patient is known to have a past medical history positive for atrial fibrillation, parkinsonism, diabetes mellitus, hypertension, status post permanent pacemaker implant, chronic obstructive pulmonary disease, status post cerebrovascular accident with some slight weakness of the left side. In the emergency room, CAT scans were negative. X-rays were negative for fracture. However, BNP was elevated, so the patient was admitted and treated for congestive heart failure and COPD exacerbation. The patient did do well and arrangements were made for him to be transferred to the Transitional Care Unit for further physical therapy. The patient is complaining of pain in the feet. He is being followed by Orthopedics for this. The pain seems to be more on palpation of the dorsum of the foot over the mid metatarsals. There is no pain on palpation on the plantar surface of the foot or on flexion or extension of the foot. PHYSICAL EXAMINATION: LUNGS: Distant, but clear. HEART: Regular. ABDOMEN: Soft and nontender. LABORATORY STUDIES: From yesterday shows the blood urea nitrogen to be 48 and creatinine 1.2, hemoglobin is 10.6, hematocrit 34. So, we will be following the patient in the Transitional Care Unit, encouraging physical therapy. Memo Brock MD
[2017-12-02] MEDS: Insulin Reg-LOW-Coverage SC SCH ×4 (06:40→22:58)
[2017-12-02] MEDS: Budesonide 0.5 mg/2 ml Inhal Susp UD IH SCH ×2 (07:07→21:40)
[2017-12-02] MEDS: Arformoterol 15 mcg/2 ml Inh Sol IH SCH ×2 (07:07→21:40)
--- NOTE | 2017-12-02 08:04 | PN ---
DATE: 12/02/2017 PULMONARY NOTE SUBJECTIVE: The patient appears comfortable this morning. He is not short of breath at rest. PHYSICAL EXAMINATION: VITALS: Temperature is 97.1, pulse 60, respirations 18, blood pressure 153/81. Oxygen saturation on nasal cannula is 97%. HEENT: Normocephalic, atraumatic. No JVD. CARDIOVASCULAR: Systolic ejection murmur at the lower left sternal border. No S3 gallop. LUNGS: Decreased breath sounds at the bases. Very minimal/less rhonchi. No wheezing. EXTREMITIES: Mild edema. No cyanosis, no clubbing. Calves are nontender to palpation. GI: Abdomen is soft, nontender and nondistended. Bowel sounds are positive. SKIN: No acute rash. NEUROLOGIC: Limited at the present time. IMPRESSION: 1. Frequent falls. 2. Failure to thrive. 3. Advanced chronic obstructive pulmonary disease. 4. Increased B-type natriuretic peptide. 5. Anemia. Plan: The patient appears comfortable this morning. He is not short of breath at rest. He does state to feeling better overall. I did discuss the case with the night nurse at length. The night nurse stated that the patient had a good night, but did have an episode of chest pain. The chest pain was completely relieved with Motrin. The nurse will notify Cardiology of these events this morning. On physical exam, there is no significant bronchospasm noted. In addition, there is no significant alveolar-arterial gradient. I will continue the current nebulizer treatments and inhaled steroids for now. Clinical status of the patient is certainly improved - compared to the initial presentation. However, again, the future status/prognosis for this patient remains very guarded at best/poor. I will discuss the above with the attending physician. Kameron Lezama MD [facility]
[2017-12-02] MEDS: Potassium Chloride 10 mEq ER Tab PO SCH (08:10)
--- NOTE | 2017-12-02 08:18 | CP.PCM.PN ---
Subjective - Date & Time of Evaluation Date of Evaluation: 12/02/17 Time of Evaluation: 06:45 - Subjective Subjective: No distress,denies shortness of breath, standing side of bed,awake Reason for consultation: Continuity of care in TCU,history of coronary artery disease,atrial fibrillation, PPM Seen and examined by me and Dr. Machado Objective - Vital Signs/Intake and Output Vital Signs (last 24 hours): Temp Pulse Resp BP Pulse Ox 97.1 F L 60 16 153/81 H 97 12/01/17 16:00 12/02/17 01:18 12/01/17 16:00 12/02/17 01:18 12/02/17 01:18 - Medications Medications: Current Medications Albuterol Sulfate (Albuterol 0.083% Inhal Amalia (2.5 Mg/3 Ml) Ud) 2.5 mg INH [id number] PRN; Protocol PRN Reason: Wheezing Arformoterol Tartrate (Brovana) 15 mcg IH [id number] [facility] PRN Reason: Protocol Last Admin: 12/02/17 07:07 Dose: 15 mcg Budesonide (Pulmicort Respules) 0.5 mg IH [id number] [facility] PRN Reason: Protocol Last Admin: 12/02/17 07:07 Dose: 0.5 mg Carbidopa/Levodopa (Sinemet 10/100) 1 tab PO DAILY [facility] PRN Reason: Protocol Last Admin: 12/01/17 09:36 Dose: 1 tab Folic Acid (Folic Acid) 1 mg PO DAILY [facility] PRN Reason: Protocol Last Admin: 12/01/17 09:35 Dose: 1 mg Furosemide (Lasix) 40 mg PO DAILY [facility] PRN Reason: Protocol Last Admin: 12/01/17 09:36 Dose: 40 mg Insulin Human Regular (Humulin R Low) 0 units SC ACHS [facility] PRN Reason: Protocol Last Admin: 12/02/17 06:40 Dose: Not Given Lactic Acid (Lac-Hydrin 12% Cream (140 G)) 1 ea TOP DAILY [facility] PRN Reason: Protocol Last Admin: 12/01/17 09:35 Dose: 1 applic Levalbuterol HCl (Xopenex) 0.63 mg IH [id number] PRN; Protocol PRN Reason: Shortness of Breath Last Admin: 12/02/17 01:29 Dose: 0.63 mg Lisinopril (Zestril) 10 mg PO DAILY [facility] PRN Reason: Protocol Last Admin: 12/01/17 09:37 Dose: 10 mg Metolazone (Zaroxolyn) 5 mg PO DAILY [facility] PRN Reason: Protocol Last Admin: 12/01/17 09:37 Dose: 5 mg Potassium Chloride (Klor-Con 10) 10 meq PO BRK [facility] PRN Reason: Protocol Last Admin: 12/02/17 08:10 Dose: 10 meq Warfarin Sodium (Coumadin) 2.5 mg PO MOTUTHFRSA [facility] PRN Reason: Protocol Last Admin: 12/01/17 17:25 Dose: 2.5 mg - Constitutional Appears: No Acute Distress - Eye Exam Eye Exam: Normal appearance - ENT Exam ENT Exam: Mucous Membranes Moist - Respiratory Exam Respiratory Exam: Decreased Breath Sounds, NORMAL BREATHING PATTERN - Cardiovascular Exam Cardiovascular Exam: +S1, +S2 Additional comments: PPM - GI/Abdominal Exam GI & Abdominal Exam: Soft, Normal Bowel Sounds - Extremities Exam Additional comments: 1+edema - Neurological Exam Neurological Exam: Alert, Awake, Oriented x3 - Psychiatric Exam Psychiatric exam: Normal Affect - Skin Skin Exam: Dry, Warm Assessment and Plan - Assessment and Plan (Free Text) Assessment: A 72 year old male who was sent to ER by PMD due to frequent falls and shortness of breath. History of atrial fibrillation, coronary artery disease, Parkinson's, diabetes, hypertension, pacemaker, COPD, and CVA, pulmonary hypertension.Echo done =-LVEF 55%,trace AR/MR, moderate to severe aortic stenosis.RASHARD/PVR done. 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 Transferred to TCU for reconditioning For physical therapy No respiratory distress Heart rate and blood pressure controlled On Lasix 40 mg daily, Lisinopril 10 mg daily, Zaroxylyn 5 mg daily Potassium 10 meq daily, Coumadin 2.5 mg 5x a week. Continue current treatment Continue current medications Will follow up Plan and treatment discussed with Dr. Machado
[2017-12-02] MEDS: metOLazone 5 MG TAB PO SCH (10:00)
[2017-12-02] MEDS: Ammonium Lactate 12% Cream (140 g) TOP SCH (10:31)
--- NOTE | 2017-12-02 12:52 | CARD ---
APPROVED REPORT Date of service: 12/02/2017 EKG Measurement Heart [id number] <Conclusion> Electronic ventricular pacemaker
[2017-12-03] MEDS: Insulin Reg-LOW-Coverage SC SCH ×4 (06:31→22:23)
[2017-12-03] MEDS: Arformoterol 15 mcg/2 ml Inh Sol IH SCH ×2 (07:17→20:43)
[2017-12-03] MEDS: Budesonide 0.5 mg/2 ml Inhal Susp UD IH SCH ×2 (07:18→20:43)
[2017-12-03] MEDS: Potassium Chloride 10 mEq ER Tab PO SCH (07:51)
--- NOTE | 2017-12-03 07:53 | CP.PCM.PN ---
Subjective - Date & Time of Evaluation Date of Evaluation: 12/03/17 Time of Evaluation: 06:45 - Subjective Subjective: Sitting in chair, denies shortness of breath, awake, RN claimed that patient complaining of leg pain last night Reason for consultation: Continuity of care in TCU,history of coronary artery disease,atrial fibrillation, PPM Seen and examined by me and Objective - Vital Signs/Intake and Output Vital Signs (last 24 hours): Temp Pulse Resp BP Pulse Ox 97.7 F 60 18 107/62 97 12/02/17 16:30 12/02/17 16:30 12/02/17 16:30 12/02/17 16:30 12/02/17 16:30 - Medications Medications: Current Medications Albuterol Sulfate (Albuterol 0.083% Inhal Amalia (2.5 Mg/3 Ml) Ud) 2.5 mg INH [id number] PRN; Protocol PRN Reason: Wheezing Arformoterol Tartrate (Brovana) 15 mcg IH [id number] [facility] PRN Reason: Protocol Last Admin: 12/03/17 07:17 Dose: 15 mcg Budesonide (Pulmicort Respules) 0.5 mg IH [id number] [facility] PRN Reason: Protocol Last Admin: 12/03/17 07:18 Dose: 0.5 mg Carbidopa/Levodopa (Sinemet 10/100) 1 tab PO DAILY [facility] PRN Reason: Protocol Last Admin: 12/02/17 09:20 Dose: 1 tab Folic Acid (Folic Acid) 1 mg PO DAILY [facility] PRN Reason: Protocol Last Admin: 12/02/17 09:20 Dose: 1 mg Furosemide (Lasix) 40 mg PO DAILY [facility] PRN Reason: Protocol Last Admin: 12/02/17 09:19 Dose: 40 mg Insulin Human Regular (Humulin R Low) 0 units SC ACHS [facility] PRN Reason: Protocol Last Admin: 12/03/17 06:31 Dose: Not Given Lactic Acid (Lac-Hydrin 12% Cream (140 G)) 1 ea TOP DAILY [facility] PRN Reason: Protocol Last Admin: 12/02/17 10:31 Dose: 1 applic Levalbuterol HCl (Xopenex) 0.63 mg IH [id number] PRN; Protocol PRN Reason: Shortness of Breath Last Admin: 12/02/17 01:29 Dose: 0.63 mg Lisinopril (Zestril) 10 mg PO DAILY [facility] PRN Reason: Protocol Last Admin: 12/02/17 09:20 Dose: 10 mg Metolazone (Zaroxolyn) 5 mg PO DAILY [facility] PRN Reason: Protocol Last Admin: 12/02/17 10:00 Dose: 5 mg Potassium Chloride (Klor-Con 10) 10 meq PO BRK [facility] PRN Reason: Protocol Last Admin: 12/02/17 08:10 Dose: 10 meq Warfarin Sodium (Coumadin) 2.5 mg PO MOTUTHFRSA [facility] PRN Reason: Protocol Last Admin: 12/01/17 17:25 Dose: 2.5 mg - Constitutional Appears: No Acute Distress - Eye Exam Eye Exam: Normal appearance - ENT Exam ENT Exam: Mucous Membranes Moist - Respiratory Exam Respiratory Exam: Clear to Ausculation Bilateral, NORMAL BREATHING PATTERN - Cardiovascular Exam Cardiovascular Exam: +S1, +S2 Additional comments: PPM - GI/Abdominal Exam GI & Abdominal Exam: Soft, Normal Bowel Sounds - Extremities Exam Additional comments: 2+ edema - Neurological Exam Neurological Exam: Alert, Awake, Oriented x3 - Psychiatric Exam Psychiatric exam: Normal Affect - Skin Skin Exam: Intact, Warm Assessment and Plan - Assessment and Plan (Free Text) Assessment: A 72 year old male who was sent to ER by PMD due to frequent falls and shortness of breath. History of atrial fibrillation, coronary artery disease, Parkinson's, diabetes, hypertension, pacemaker, COPD, and CVA, pulmonary hypertension.Echo done =-LVEF 55%,trace AR/MR, moderate to severe aortic stenosis.RASHARD/PVR done- bilateral popliteal trifurcation tibial disease. Followed up by Podiatry.Transferred to TCU for reconditioning,for physical therapy, Episode of chest pain over over the weekend ,no evidence of ischemia. Plan: In TCU for reconditioning For physical therapy No respiratory distress Heart rate and blood pressure controlled On Lasix 40 mg daily, Lisinopril 10 mg daily, Zaroxylyn 5 mg daily Potassium 10 meq daily, Coumadin 2.5 mg 5x a week. Complaining of leg pain, Motrin PRN Continue current treatment Continue current medications Will follow up Plan and treatment discussed with Dr. Hemphill
[2017-12-03] MEDS: Ammonium Lactate 12% Cream (140 g) TOP SCH (09:54)
[2017-12-03] MEDS: metOLazone 5 MG TAB PO SCH (09:56)
--- NOTE | 2017-12-03 10:49 | PN ---
DATE: 12/03/2017 PULMONARY NOTE DICTATION SUBJECTIVE: The patient appears comfortable this morning. He is not short of breath at rest. He is out of bed, sitting in the chair. PHYSICAL EXAMINATION: VITAL SIGNS: Temperature is 97.7, pulse 60, respirations 18, blood pressure 107/62. Oxygen saturation on nasal cannula is 97%. HEENT: Normocephalic, atraumatic. No JVD. CARDIOVASCULAR: Systolic ejection murmur at the lower left sternal border. No S3 gallop. LUNGS: Decreased breath sounds at the bases. Very minimal rhonchi. No wheezing. EXTREMITIES: Mild edema. No cyanosis, no clubbing. Calves are nontender to palpation. GI: Abdomen is soft, nontender, nondistended. Bowel sounds are positive. SKIN: No acute rash. NEUROLOGIC: Limited at the present time. IMPRESSION: 1. Frequent falls. 2. Failure to thrive. 3. Advanced chronic obstructive pulmonary disease. 4. Increased B-type natriuretic peptide. 5. Anemia. PLAN: The patient appears comfortable this morning. He is not short of breath at rest. He does state to feeling better overall. On physical exam, there is only minimal bronchospasm noted. In addition, there is no significant alveolar-arterial gradient. I will continue the current nebulizer treatments and inhaled steroids for now. The patient remains on Lasix, as well as metolazone. Input by Cardiology is also noted. Clinical status of the patient is significantly improved overall. However, again, the future status/prognosis for this patient does remain very guarded at best/poor. I will discuss the above with the attending physician. Kameron Lezama MD MTDD
--- NOTE | 2017-12-03 12:03 | CP.PCM.PN ---
Subjective - Date & Time of Evaluation Date of Evaluation: 12/03/17 Time of Evaluation: 11:55 - Subjective Subjective: Podiatry Progress Note for Dr. Martinez 72M seen and evaluated in bed for b/l LE xerosis. Patient states that his pain is improved today over the last few days. He is AAO x 3 and NAD, resting comfortably in a chair at bedside. He denies any acute overnight events or any new pedal complaints at this time. Denies any recent N/V/F/C/CP/SOB/D/posterior calf pain when squeezed Objective - Vital Signs/Intake and Output Vital Signs (last 24 hours): Temp Pulse Resp BP Pulse Ox 97.7 F 60 18 104/60 97 12/02/17 16:30 12/02/17 16:30 12/02/17 16:30 12/03/17 10:00 12/02/17 16:30 - Medications Medications: Current Medications Albuterol Sulfate (Albuterol 0.083% Inhal Amalia (2.5 Mg/3 Ml) Ud) 2.5 mg INH [id number] PRN; Protocol PRN Reason: Wheezing Arformoterol Tartrate (Brovana) 15 mcg IH [id number] [facility] PRN Reason: Protocol Last Admin: 12/03/17 07:17 Dose: 15 mcg Budesonide (Pulmicort Respules) 0.5 mg IH [id number] [facility] PRN Reason: Protocol Last Admin: 12/03/17 07:18 Dose: 0.5 mg Carbidopa/Levodopa (Sinemet 10/100) 1 tab PO DAILY [facility] PRN Reason: Protocol Last Admin: 12/03/17 09:56 Dose: 1 tab Folic Acid (Folic Acid) 1 mg PO DAILY [facility] PRN Reason: Protocol Last Admin: 12/03/17 09:55 Dose: 1 mg Furosemide (Lasix) 40 mg PO DAILY [facility] PRN Reason: Protocol Last Admin: 12/03/17 10:00 Dose: 40 mg Insulin Human Regular (Humulin R Low) 0 units SC ACHS [facility] PRN Reason: Protocol Last Admin: 12/03/17 11:36 Dose: Not Given Lactic Acid (Lac-Hydrin 12% Cream (140 G)) 1 ea TOP DAILY [facility] PRN Reason: Protocol Last Admin: 12/03/17 09:54 Dose: 1 applic Levalbuterol HCl (Xopenex) 0.63 mg IH [id number] PRN; Protocol PRN Reason: Shortness of Breath Last Admin: 12/02/17 01:29 Dose: 0.63 mg Lisinopril (Zestril) 10 mg PO DAILY [facility] PRN Reason: Protocol Last Admin: 12/03/17 10:00 Dose: Not Given Metolazone (Zaroxolyn) 5 mg PO DAILY [facility] PRN Reason: Protocol Last Admin: 12/03/17 09:56 Dose: 5 mg Potassium Chloride (Klor-Con 10) 10 meq PO BRK [facility] PRN Reason: Protocol Last Admin: 12/03/17 07:51 Dose: 10 meq Warfarin Sodium (Coumadin) 2.5 mg PO MOTUTHFRSA [facility] PRN Reason: Protocol Last Admin: 12/01/17 17:25 Dose: 2.5 mg - Constitutional Appears: Well, Non-toxic, No Acute Distress - Extremities Exam Additional comments: B/l LE focused exam: VASC: DP and PT pulses non-palpable, CFT delayed to all digits, temperature gradient cool to cool, mild edema noted circumferentially to bilateral lower extremities ORTHO: pain upon palpation to the entire lower extremity (improving), MMT 4/5 bilaterally NEURO: protective and gross sensation slightly diminished DERM: Generalized diffuse hyperpigmentation of skin to bilateral lower extremities. Xerosis noted with friable, thin, shiny skin to entire lower extremities. No open lesions, no erythema, no clinical signs of infection. - Neurological Exam Neurological Exam: Alert, Awake, Oriented x3 - Psychiatric Exam Psychiatric exam: Normal Affect, Normal Mood Assessment and Plan - Assessment and Plan (Free Text) Assessment: 72 yo male seen and evaluated for lower extremity skin discoloration and xerosis Plan: Patient seen and evaluated Plan discussed with attending Dr. Michelle Rios Amlactin lotion applied to b/l LE Surgical shoes put back on feet Patient stable from podiatric standpoint Podiatry will sign off on this time Nursing to continue with Amlactin applications daily while patient in house Please reconsult in future as needed
[2017-12-03 16:38] VITALS: RESP 20
[2017-12-03 17:34] VITALS: PULSE 60; O2SAT 100
--- NOTE | 2017-12-04 06:37 | CP.PCM.PN ---
Subjective - Date & Time of Evaluation Date of Evaluation: 12/04/17 Time of Evaluation: 06:35 - Subjective Subjective: Awake, sitting side of bed, denies shortness of breath Reason for consultation: Continuity of care in TCU,history of coronary artery disease,atrial fibrillation, PPM Seen and examined by me and Objective - Vital Signs/Intake and Output Vital Signs (last 24 hours): Temp Pulse Resp BP Pulse Ox 97.9 F 60 20 96/61 L 100 12/03/17 16:37 12/03/17 17:07 12/03/17 16:37 12/03/17 16:37 12/03/17 17:07 - Medications Medications: Current Medications Albuterol Sulfate (Albuterol 0.083% Inhal Amalia (2.5 Mg/3 Ml) Ud) 2.5 mg INH [id number] PRN; Protocol PRN Reason: Wheezing Arformoterol Tartrate (Brovana) 15 mcg IH [id number] [facility] PRN Reason: Protocol Last Admin: 12/03/17 20:43 Dose: 15 mcg Budesonide (Pulmicort Respules) 0.5 mg IH [id number] [facility] PRN Reason: Protocol Last Admin: 12/03/17 20:43 Dose: 0.5 mg Carbidopa/Levodopa (Sinemet 10/100) 1 tab PO DAILY [facility] PRN Reason: Protocol Last Admin: 12/03/17 09:56 Dose: 1 tab Folic Acid (Folic Acid) 1 mg PO DAILY [facility] PRN Reason: Protocol Last Admin: 12/03/17 09:55 Dose: 1 mg Furosemide (Lasix) 40 mg PO DAILY [facility] PRN Reason: Protocol Last Admin: 12/03/17 10:00 Dose: 40 mg Ibuprofen (Motrin Tab) 600 mg PO Q6H PRN PRN Reason: Pain, moderate (4-7) Last Admin: 12/04/17 03:51 Dose: 600 mg Insulin Human Regular (Humulin R Low) 0 units SC ACHS [facility] PRN Reason: Protocol Last Admin: 12/03/17 22:23 Dose: Not Given Lactic Acid (Lac-Hydrin 12% Cream (140 G)) 1 ea TOP DAILY [facility] PRN Reason: Protocol Last Admin: 12/03/17 09:54 Dose: 1 applic Levalbuterol HCl (Xopenex) 0.63 mg IH [id number] PRN; Protocol PRN Reason: Shortness of Breath Last Admin: 12/02/17 01:29 Dose: 0.63 mg Lisinopril (Zestril) 10 mg PO DAILY [facility] PRN Reason: Protocol Last Admin: 12/03/17 10:00 Dose: Not Given Metolazone (Zaroxolyn) 5 mg PO DAILY [facility] PRN Reason: Protocol Last Admin: 12/03/17 09:56 Dose: 5 mg Potassium Chloride (Klor-Con 10) 10 meq PO BRK [facility] PRN Reason: Protocol Last Admin: 12/03/17 07:51 Dose: 10 meq Warfarin Sodium (Coumadin) 2.5 mg PO [facility] PRN Reason: Protocol Last Admin: 12/03/17 17:42 Dose: 2.5 mg - Constitutional Appears: No Acute Distress - Eye Exam Eye Exam: Normal appearance - ENT Exam ENT Exam: Mucous Membranes Moist - Respiratory Exam Respiratory Exam: Clear to Ausculation Bilateral, NORMAL BREATHING PATTERN - Cardiovascular Exam Cardiovascular Exam: +S1, +S2 Additional comments: PPM - Neurological Exam Neurological Exam: Alert, Awake, Oriented x3 - Psychiatric Exam Psychiatric exam: Normal Affect - Skin Skin Exam: Dry, Warm Assessment and Plan - Assessment and Plan (Free Text) Assessment: A 72 year old male who was sent to ER by PMD due to frequent falls and shortness of breath. History of atrial fibrillation, coronary artery disease, Parkinson's, diabetes, hypertension, pacemaker, COPD, and CVA, pulmonary hypertension.Echo done =-LVEF 55%,trace AR/MR, moderate to severe aortic stenosis.RASHARD/PVR done- bilateral popliteal trifurcation tibial disease. Followed up by Podiatry.Transferred to TCU for reconditioning,for physical therapy, Episode of chest pain over over the weekend ,no evidence of ischemia. Plan: Physical therapy in progress No respiratory distress Feels good and wanted to go home Heart rate and blood pressure controlled On Lasix 40 mg daily, Lisinopril 10 mg daily, Zaroxylyn 5 mg daily Potassium 10 meq daily, Coumadin 2.5 mg 5x a week. Continue current treatment Continue current medications Discharge planning Will follow up Plan and treatment discussed with Dr. Hemphill
[2017-12-04 07:07] LABS: HEMOGLOBIN 10.4 g/dL (14.0-18.0); MEAN CORPUSCULAR HEMOGLOBIN 24.6 pg (25.0-35.0); MEAN CORPUSCULAR HGB CONC 31.5 g/dl (31.0-37.0); MEAN PLATELET VOLUME 10.8 fl (7.0-11.0); RBC 4.23 10^6/uL (3.5-6.1); RED CELL DISTRIBUTION WIDTH 17.3 % (11.5-14.5); WHITE BLOOD COUNT 6.8 10^3/ul (4.5-11.0)
[2017-12-04] MEDS: Budesonide 0.5 mg/2 ml Inhal Susp UD IH SCH (07:13)
[2017-12-04] MEDS: Arformoterol 15 mcg/2 ml Inh Sol IH SCH (07:13)
[2017-12-04 07:15] LABS: INR 2.16
[2017-12-04 07:16] LABS: ALB/GLOB RATIO 1.2 (1.1-1.8); ALBUMIN 4.6 g/dL (3.0-4.8); ALT/SGPT 34 U/L (7-56); AST/SGOT 63 U/L (17-59); BLOOD UREA NITROGEN 58 mg/dL (7-21); CALCIUM 8.8 mg/dL (8.4-10.5); GFR AFRICAN-AMERICAN > 60; GFR NON-AFRICAN AMERICAN 60; URIC ACID 8.1 mg/dL (3.5-8.5)
[2017-12-04] MEDS: Insulin Reg-LOW-Coverage SC SCH ×2 (07:48→12:05)
[2017-12-04] MEDS: Potassium Chloride 10 mEq ER Tab PO SCH (07:49)
--- NOTE | 2017-12-04 08:11 | PN ---
Copied To: Kameron Lezama MD Attending MD: Kameron Lezama MD. DATE: 12/04/2017 PULMONARY NOTE SUBJECTIVE: The patient appears comfortable this morning. He is not short of breath at rest. OBJECTIVE: VITAL SIGNS (last noted in the computer): Temperature is 97.9, pulse 60, respirations 18/20, blood pressure 96/61. Oxygen saturation on nasal cannula is 100%. HEENT: Normocephalic, atraumatic. No JVD. CARDIOVASCULAR: Systolic ejection murmur at the lower left sternal border. No S3 gallop. LUNGS: Improved breath sounds at the bases. Very minimal/less rhonchi. No wheezing. EXTREMITIES: Mild edema. No cyanosis, no clubbing. Calves are nontender to palpation. GI: Abdomen is soft, nontender and nondistended. Bowel sounds are positive. SKIN: No acute rash. NEUROLOGIC: Exam limited at the present time. IMPRESSION: 1. Frequent falls. 2. Failure to thrive. 2. Advanced chronic obstructive pulmonary disease. 4. Increased B-type natriuretic peptide. 5. Anemia. PLAN: The patient appears comfortable this morning. He is not short of breath at rest. He does state to feeling much better overall. On physical exam, his bronchospasm continues to resolve. In addition, the oxygen saturation on nasal cannula is now 100%. I will continue with the current nebulizer treatments and inhaled steroids for now. Cardiology evaluation is ongoing. The patient remains on diuretics. Clinical status of the patient is significantly improved - compared to the initial presentation. However, again, unfortunately, the overall status/prognosis for this patient remains very guarded at best/poor. I will discuss the above with the attending physician. Kameron Lezama MD MTDD
[2017-12-04] MEDS: Ammonium Lactate 12% Cream (140 g) TOP SCH (10:00)
[2017-12-04] MEDS: metOLazone 5 MG TAB PO SCH (10:03)
[2017-12-04 10:05] VITALS: BP 119/63
[2017-12-04 10:06] VITALS: TEMP 98
[2017-12-05 14:00] LABS: PARTIAL THROMBOPLASTIN TIME 37.1 Seconds (25.1-36.5); PROTHROMBIN TIME 25.2 SECONDS (9.4-12.5)
--- NOTE | 2017-12-06 06:26 | DS ---
Copied To: Junior Brock MD Attending MD: Junior Brock MD HISTORY OF PRESENT ILLNESS: This is a 72-year-old man with congestive heart failure, COPD, moderate obesity, who presented to acute care facility at [facility] in volume overload and CHF. He then came to the transitional care unit for some additional diuresis, physical therapy and conditioning. This is the discharge summary for the patient's stay on transitional care unit. While on TCU, patient did well. He continued his diuresis. He continue with aerosol treatments. His pulmonary function was quite stable with little to no wheezing. CHF improved. He diuresed nicely. As was typical in the past, his abdominal distension and tenseness subsided as the CHF improved. Leg edema went down. He was comfortable, in good spirits, sitting out of bed in the chair, ambulatory with the cane or walker and ready for discharge to home. FINAL DISCHARGE DIAGNOSES: 1. Deconditioning. 2. Congestive heart failure. 3. Chronic obstructive pulmonary disease. 4. History of tobacco use. Junior Brock MD
== END 2017-12-04 15:11 | disposition home health service (06) | DRG 192 ==
LOC: TRCU 15:32
PROVIDERS: ADMIT Internal Medicine; ATTEND Internal Medicine
PROC: F07Z9FZ Gait Training/Functional Ambulation Treatment using Assistive, Adaptive, Supportive or Protective Equipment (ICD-10-PCS; principal; 2017-12-02)
PROC: F07L6ZZ Therapeutic Exercise Treatment of Musculoskeletal System - Lower Back / Lower Extremity (ICD-10-PCS; 2017-12-02)
PROC: F08Z4FZ Home Management Treatment using Assistive, Adaptive, Supportive or Protective Equipment (ICD-10-PCS; 2017-12-03)
DX: J44.1 Chronic obstructive pulmonary disease with (acute) exacerbation (principal); I11.0 Hypertensive heart disease with heart failure; I50.9 Heart failure, unspecified; E11.9 Type 2 diabetes mellitus without complications; G20 Parkinson's disease; I25.10 Atherosclerotic heart disease of native coronary artery without angina pectoris; R62.7 Adult failure to thrive; I27.20 Pulmonary hypertension, unspecified; I48.91 Unspecified atrial fibrillation; I35.0 Nonrheumatic aortic (valve) stenosis; D64.9 Anemia, unspecified; L85.3 Xerosis cutis; R29.6 Repeated falls; Z86.73 Personal history of transient ischemic attack (TIA), and cerebral infarction without residual deficits; Z95.0 Presence of cardiac pacemaker; Z87.891 Personal history of nicotine dependence; Z79.4 Long term (current) use of insulin

== ENCOUNTER 2018-07-18 17:36 | Outpatient (CLI) | payer MEDICARE | END 2018-07-18 17:37 | disposition home or self-care (01) | LOC: CARDIO 17:36 ==